=== PATIENT | female | born 1935 | race Caucasian/White ===

== ENCOUNTER 2016-08-31 19:33 | Inpatient (IN) | payer MEDICARE ==
--- NOTE | 2016-08-31 20:05 | ER Document Report ---
ED Medical Screen (RME) - General Stated Complaint: BLOOD PRESSURE/DIZZY Mode of Arrival: Wheelchair Information source: Patient Notes: Patient complains of elevated blood pressure at home 199/100. Patient additionally complains of sore throat for the past several weeks. Patient does complain of headache pain that started today. Patient states that she started to develop left-sided chest pain today. Patient states she is unable to take aspirin. hx: Hypertension I have greeted and performed a rapid initial assessment of this patient. A comprehensive ED assessment and evaluation of the patient, analysis of test results and completion of the medical decision making process will be conducted by additional ED providers. TRAVEL OUTSIDE OF THE [place] IN LAST 30 DAYS: No - Related Data Allergies/Adverse Reactions: Penicillins Allergy (Verified 08/31/16 20:00) Sulfa (Sulfonamide Antibiotics) Allergy (Verified 08/31/16 20:00) Past Medical History - Past Medical History Cardiac Medical History: Reports: Hx Hypercholesterolemia, Hx Hypertension Neurological Medical History: Reports: Hx Cerebrovascular Accident - 2 Musculoskeltal Medical History: Reports Hx Arthritis Psychiatric Medical History: Denies: Hx Depression Infectious Medical History: Denies: Hx C-Diff Past Surgical History: Reports: Hx Cholecystectomy, Hx Orthopedic Surgery Physical Exam - Respiratory Chest status: Nontender - Cardiovascular Rhythm: Regular Heart sounds: S1 appreciated, S2 appreciated
[2016-08-31 21:07] LABS: ABSOLUTE BASOPHILS # (AUTO) 0.1 10^3/uL (0.0-0.2); ABSOLUTE EOSINOPHILS # (AUTO) 0.2 10^3/uL (0.0-0.6); ABSOLUTE LYMPHOCYTES (AUTO) 2.7 10^3/uL (0.5-4.7); ABSOLUTE MONOCYTES (AUTO) 0.5 10^3/uL (0.1-1.4); ABSOLUTE NEUT (AUTO) 3.8 10^3/uL (1.7-8.2); EOSINOPHILS % (AUTO) 3.3 % (0-6); HEMATOCRIT 41.7 % (36.0-47.0); HEMOGLOBIN 13.8 g/dL (12.0-15.5); HGB HCT DIFFERENCE -0.3; LYMPHOCYTES % (AUTO) 36.8 % (13-45); MEAN CORPUSCULAR HEMOGLOBIN 28.3 pg (27.0-33.4); MEAN CORPUSCULAR VOLUME 86 fl (80-97); MONOCYTES % (AUTO) 7.4 % (3-13); RED BLOOD COUNT 4.86 10^6/uL (3.72-5.28); RED CELL DISTRIBUTION WIDTH 13.1 % (11.5-14.0); SEGMENTED NEUTROPHILS % (AUTO) 51.5 % (42-78); WHITE BLOOD COUNT 7.4 10^3/uL (4.0-10.5)
[2016-08-31 21:22] LABS: ALANINE AMINOTRANSFERASE 39 U/L (9-52); ALBUMIN 4.1 g/dL (3.5-5.0); ALKALINE PHOSPHATASE 80 U/L (38-126); ANION GAP 9 (5-19); ASPARTATE AMINO TRANSFERASE 34 U/L (14-36); BILIRUBIN,TOTAL 0.5 mg/dL (0.2-1.3); BLOOD UREA NITROGEN 17 mg/dL (7-20); CALCIUM 10.2 mg/dL (8.4-10.2); CARBON DIOXIDE 23 mmol/L (22-30); CHLORIDE 104 mmol/L (98-107); CREATINE KINASE 123 U/L (30-135); CREATININE RESULT 0.71 mg/dL (0.52-1.25); GLUCOSE 99 mg/dL (75-110); MAGNESIUM 1.7 mg/dL (1.6-2.3); SODIUM 136.1 mmol/L (137-145); TOTAL PROTEIN 7.2 g/dL (6.3-8.2)
[2016-08-31 21:33] LABS: CREATINE KINASE MB 1.62 ng/mL (<4.55); TROPONIN I 0.012 ng/mL
[2016-08-31] MEDS ORDERED: NITROGLYCERIN 2% OINTMENT 1 GM PACKET TP ONE (22:46)
[2016-08-31 22:56] LABS: APPEARANCE,URINE CLEAR; BILIRUBIN,URINE NEGATIVE (NEGATIVE); GLUCOSE, URINE NEGATIVE (NEGATIVE); KETONES,URINE NEGATIVE (NEGATIVE); LEUKOCYTE ESTERASE,URINE SMALL (NEGATIVE); NITRITE,URINE NEGATIVE (NEGATIVE); PROTEIN,URINE NEGATIVE (NEGATIVE); URINE SPECIFIC GRAVITY 1.006; UROBILINOGEN,URINE NEGATIVE mg/dL (<2.0)
--- NOTE | 2016-08-31 23:03 | ER Document Report ---
ED General - General Chief Complaint: Blood Pressure Problem Stated Complaint: BLOOD PRESSURE/DIZZY Mode of Arrival: Wheelchair Notes: Patient is a 1-year-old female presents for complaint of high blood pressure, dizziness, and headaches. Patient says she's had dizziness and headaches since her stroke urinate half ago. She says this isn't headaches occur every day however today showed a headache that was different. She said she felt like pain and swelling going into her neck and her head. She said one time she had this before sweats she had a stroke urine half ago. No focal weakness or numbness. She does mention that her left leg at times feels like it's about to go out. That is needed today and she had that once in the past when she had a previous stroke. No slurred speech. No fevers. No infections. She is on lisinopril 10 mg a day which she says usually controls her blood pressure well. She now follows with Dr. Chatterjee as her primary care physician. She does admit to some mild chest pain which she started having earlier today. She says she does get this pain frequently and is familiar to her. She currently does not have any chest pain. TRAVEL OUTSIDE OF THE [place] IN LAST 30 DAYS: No - Related Data Allergies/Adverse Reactions: Penicillins Allergy (Verified 08/31/16 20:00) Sulfa (Sulfonamide Antibiotics) Allergy (Verified 08/31/16 20:00) Past Medical History - General Information source: Patient - Social History Smoking Status: Never Smoker Frequency of alcohol use: None Drug Abuse: None Family History: Reviewed & Not Pertinent Patient has suicidal ideation: No Patient has homicidal ideation: No - Past Medical History Cardiac Medical History: Reports: Hx Hypercholesterolemia, Hx Hypertension Neurological Medical History: Reports: Hx Cerebrovascular Accident - 2 Renal/ Medical History: Denies: Hx Peritoneal Dialysis Musculoskeltal Medical History: Reports Hx Arthritis Psychiatric Medical History: Denies: Hx Depression Infectious Medical History: Denies: Hx C-Diff Past Surgical History: Reports: Hx Cholecystectomy, Hx Orthopedic Surgery - Immunizations Hx Diphtheria, Pertussis, Tetanus Vaccination: Yes Hx Pneumococcal Vaccination: 04/13/11 Review of Systems - Review of Systems Notes: My Normal Review Basic REVIEW OF SYSTEMS: CONSTITUTIONAL : Denies fever, chills, or sweats. Denies recent illness. EENT: Denies eye, ear, throat, or mouth pain or symptoms. Denies nasal or sinus congestion. CARDIOVASCULAR: Had chest pain RESPIRATORY: Denies cough, cold, or chest congestion. Denies shortness of breath, difficulty breathing, or wheezing. GASTROINTESTINAL: Denies abdominal pain. Denies nausea, vomiting, or diarrhea. Denies constipation. Last BM: MUSCULOSKELETAL: Denies neck or back pain or joint pain or swelling. SKIN: Denies rash or skin lesions. NEUROLOGICAL: Denies altered mental status or loss of consciousness. Had a headache. Denies weakness or paralysis or loss of use of either side. Denies problems with gait or speech. Denies sensory or motor loss. PSYCHIATRIC: Denies anxiety or stress or depression. ALL OTHER SYSTEMS REVIEWED AND NEGATIVE. Physical Exam - Vital signs Vitals: Temp Pulse Resp BP Pulse Ox 97.5 F 88 17 180/85 H 97 08/31/16 20:01 08/31/16 20:01 08/31/16 20:01 08/31/16 20:01 08/31/16 20:01 - Notes Notes: General Appearance: Well nourished, alert, cooperative, no acute distress, no obvious discomfort. Vitals: reviewed, See vital signs table. Head: no swelling or tenderness to the head Eyes: PERRL, EOMI, Conjuctiva clear Mouth: No decreasd moisture Neck: Supple, no neck tenderness, No thyromegaly Lungs: No wheezing, No rales, No rhonci, No accessory muscle use, good air exchange bilaterally. Heart: Normal rate, Regular rythm, No murmur, no rub Abdomen: Normal BS, soft, No rigidity, No abdominal tenderness, No guarding, no rebound, no abdominal masses, no organomegaly Extremities: strength 5/5 in all extremities, good pulses in all extremities, no swelling or tenderness in the extremities, no edema. Skin: warm, dry, appropriate color, no rash Neuro: speech clear, oriented x 3, normal affect, responds appropriately to questions. Cranial nerves II through XII are intact. Distal sensation intact. Patient moves all extremities without difficulty. Course - Vital Signs Vital signs: Temp Pulse Resp BP Pulse Ox 97.5 F 88 13 148/64 H 97 08/31/16 20:01 08/31/16 20:01 09/01/16 00:01 09/01/16 00:01 09/01/16 00:01 - Laboratory Result Diagrams: 08/31/16 21:00 08/31/16 21:00 Laboratory results interpreted by me: 08/31/16 08/31/16 21:00 22:35 Sodium 136.1 L Urine Blood SMALL H Ur Leukocyte Esterase SMALL H - Transfer of Care Notes: 09/01/16 00:19 Patient's blood pressure is improving without any intervention. The exact cause of her headache is not completely clear; however, I cannot or the fact that the 2 previous times that she had the exact same type of headache and the weird sensation in her legs she had acute stroke on her MRIs when she was admitted. She has no other neurologic deficits on exam. She looks well otherwise. We will admit her for further workup of her symptoms being that they 've represented strokes in the past. Dictation of this chart was performed using voice recognition software; therefore, there may be some unintended grammatical errors. Discharge - Discharge Clinical Impression: History of stroke Hypertension Qualifiers: Hypertension type: essential hypertension Qualified Code(s): I10 - Essential ( primary) hypertension Headache Qualifiers: Headache type: unspecified Headache chronicity pattern: episodic headache Intractability: not intractable Qualified Code(s): R51 - Headache Condition: Stable Disposition: ADMITTED OBSERVATION Admitting Provider: Hospitalist Unit Admitted: Telemetry
[2016-09-01] MEDS ORDERED: MAGNESIUM HYDROXIDE SUSP 30 ML UDCUP PO PRN (00:19)
[2016-09-01] MEDS ORDERED: ONDANSETRON 4 MG TAB.RAPDIS PO PRN (00:19)
[2016-09-01] MEDS ORDERED: ACETAMINOPHEN 325 MG TABLET PO PRN (00:19)
[2016-09-01] MEDS ORDERED: NORMAL SALINE 1000 ML 1,000 ML IV PRN (05:33)
[2016-09-01] MEDS: HEPARIN SOD (PORCINE) 5,000 UNIT/ML 1 ML SYRINGE SUBCUT SCH ×3 (06:07→22:50)
--- NOTE | 2016-09-01 06:28 | PDOC H&P ---
History of Present Illness Admission Date/PCP: 09/01/16 00:19 PENNY TREJO MD Patient complains of: Headache History of Present Illness: DAILY DE SANTIAGO is a 81 year old female with a past medical history of CVA, hypertension who is in her usual state of health until approximately 3 days ago noting to have an exceptional headache which was diffuse and dull associated with blurred vision and facial flushing without palpitations or frequent stools or diaphoresis prompting her to check her blood pressure finding it to be in the 190 systolic and came to the emergency room for evaluation. She had some vague short-lived leg weakness without fall no confusion or difficulty with speech. She denies change in her medications or diet though admits her mood is somewhat depressed with early awakening and loneliness. Past Medical History Cardiac Medical History: Reports: Hyperlipidema, Hypertension Neurological Medical History: Reports: Ischemic CVA Musculoskeltal Medical History: Reports: Arthritis Psychiatric Medical History: Denies: Depression Infectious Medical History: Denies: Clostridium Difficile Past Surgical History Past Surgical History: Reports: Cholecystectomy, Orthopedic Surgery Social History Information Source: Patient Lives with: Alone Smoking Status: Never Smoker Frequency of Alcohol Use: None Hx Recreational Drug Use: No Drugs: None Hx Prescription Drug Abuse: No - Advance Directive Resuscitation Status: Full Code Family History Family History: Hypertension, Malignancy Parental Family History Reviewed: Yes Children Family History Reviewed: Yes Sibling(s) Family History Reviewed.: Yes Medication/Allergy Home Medications: Atorvastatin Calcium [Lipitor 20 mg Tablet] 20 mg PO QHS #30 tablet 05/23/15 Lisinopril [Lisinopril] 10 mg PO DAILY 09/01/16 Allergies/Adverse Reactions: Penicillins Allergy (Verified 08/31/16 20:00) Sulfa (Sulfonamide Antibiotics) Allergy (Verified 08/31/16 20:00) Review of Systems Constitutional: PRESENT: fatigue, weakness. ABSENT: chills, fever(s), headache( s), night sweats, weight gain, weight loss Eyes: PRESENT: visual disturbances Ears: ABSENT: hearing changes Cardiovascular: ABSENT: chest pain, dyspnea on exertion, edema, orthropnea, palpitations Respiratory: ABSENT: cough, hemoptysis Gastrointestinal: ABSENT: abdominal pain, constipation, diarrhea, hematemesis, hematochezia, nausea, vomiting Genitourinary: ABSENT: dysuria, hematuria Musculoskeletal: PRESENT: muscle weakness - Intermittent lower extremity muscle weakness. ABSENT: joint swelling Integumentary: ABSENT: rash, wounds Neurological: PRESENT: paresthesias, restless legs. ABSENT: abnormal gait, abnormal speech, confusion, dizziness, focal weakness, frequent falls, lack of coordination, memory loss, numbness, syncope, tingling, tremor(s), vertigo Psychiatric: PRESENT: anxiety, depression Endocrine: PRESENT: flushing. ABSENT: cold intolerance, heat intolerance, menstrual abnormalities, polydipsia, polyphagia, polyuria Physical Exam Vital Signs: Temp Pulse Resp BP Pulse Ox 97.5 F 88 18 139/72 H 96 08/31/16 20:01 08/31/16 20:01 09/01/16 05:26 09/01/16 05:26 09/01/16 05:26 General appearance: PRESENT: no acute distress, cooperative, well-developed, well-nourished. ABSENT: disheveled Head exam: PRESENT: atraumatic, normocephalic Eye exam: PRESENT: conjunctival injection, conjunctiva pink, EOMI, PERRLA. ABSENT: scleral icterus Ear exam: PRESENT: normal external ear exam Mouth exam: PRESENT: moist, tongue midline Neck exam: ABSENT: carotid bruit, JVD, lymphadenopathy, thyromegaly Respiratory exam: PRESENT: clear to auscultation lanny. ABSENT: rales, rhonchi, wheezes Cardiovascular exam: PRESENT: RRR. ABSENT: diastolic murmur, rubs, systolic murmur Pulses: PRESENT: normal dorsalis pedis pul Vascular exam: PRESENT: normal capillary refill GI/Abdominal exam: PRESENT: normal bowel sounds, soft. ABSENT: distended, guarding, mass, organolmegaly, rebound, tenderness Rectal exam: PRESENT: deferred Extremities exam: PRESENT: full ROM. ABSENT: calf tenderness, clubbing, pedal edema Neurological exam: PRESENT: alert, awake, oriented to person, oriented to place , oriented to time, oriented to situation, reflexes normal, CN II-XII grossly intact. ABSENT: ataxia, motor sensory deficit, aphasic Psychiatric exam: PRESENT: anxious, appropriate affect, normal mood. ABSENT: homicidal ideation, suicidal ideation Skin exam: PRESENT: dry, intact, warm. ABSENT: cyanosis, rash Results Impressions: Chest X-Ray 08/31/16 20:04 IMPRESSION: No acute cardiopulmonary disease. Head CT 08/31/16 22:44 IMPRESSION: Chronic changes. Old right cerebral infarct. No acute intracranial abnormality. Assessment & Plan - Diagnosis (1) Hypertensive emergency Is this a current diagnosis for this admission?: YesPlan: Patient's blood pressure in the emergency room is 212/126 though drops to 140/ 90 without intervention and is asymptomatic, I suspect she is compliant with her medication regiment but has untreated anxiety. I'll continue to monitor on a monitored bed evaluate for CVA given her history she is reluctant to take aspirin resulting in nausea but not allergic response. I'll initiate a proton pump inhibitor with aspirin and full dose Lipitor (2) TIA (transient ischemic attack) Is this a current diagnosis for this admission?: YesPlan: Secondary to hypertensive emergency the patient has multiple previous CVAs, aspirin with proton pump inhibitor and Lipitor ordered (3) Headache Qualifiers: Headache type: unspecified Headache chronicity pattern: episodic headache Intractability: not intractable Qualified Code(s): R51 - Headache Is this a current diagnosis for this admission?: YesPlan: Secondary to uncontrolled blood pressure will initiate low-dose beta misha (4) Depression with anxiety Is this a current diagnosis for this admission?: YesPlan: Trial SSRI - Time Time Spent: 30 to 50 Minutes
[2016-09-01 07:26] LABS: ABSOLUTE EOSINOPHILS # (AUTO) 0.3 10^3/uL (0.0-0.6); ABSOLUTE LYMPHOCYTES (AUTO) 1.9 10^3/uL (0.5-4.7); ABSOLUTE MONOCYTES (AUTO) 0.7 10^3/uL (0.1-1.4); ABSOLUTE NEUT (AUTO) 3.2 10^3/uL (1.7-8.2); BASOPHILS % (AUTO) 0.7 % (0-2); EOSINOPHILS % (AUTO) 4.8 % (0-6); HEMATOCRIT 36.6 % (36.0-47.0); HEMOGLOBIN 12.1 g/dL (12.0-15.5); HGB HCT DIFFERENCE -0.3; LYMPHOCYTES % (AUTO) 30.7 % (13-45); MEAN CORPUSCULAR HEMOGLOBIN 28.7 pg (27.0-33.4); MEAN CORPUSCULAR VOLUME 87 fl (80-97); MONOCYTES % (AUTO) 11.2 % (3-13); RED BLOOD COUNT 4.21 10^6/uL (3.72-5.28); SEGMENTED NEUTROPHILS % (AUTO) 52.6 % (42-78); WHITE BLOOD COUNT 6.1 10^3/uL (4.0-10.5)
[2016-09-01 07:42] LABS: ANION GAP 8 (5-19); BLOOD UREA NITROGEN 13 mg/dL (7-20); CALCIUM 9.1 mg/dL (8.4-10.2); CARBON DIOXIDE 24 mmol/L (22-30); CHLORIDE 109 mmol/L (98-107); CHOLESTEROL 155.09 mg/dL (0-200); CREATININE RESULT 0.67 mg/dL (0.52-1.25); Direct HDL 94 mg/dL (>40); GLUCOSE 83 mg/dL (75-110); POTASSIUM 4.1 mmol/L (3.6-5.0); TRIGLYCERIDES 55 mg/dL (<150)
[2016-09-01 07:54] LABS: DIRECT LDL 46 mg/dL (<100)
[2016-09-01] MEDS ORDERED: ATENOLOL 50 MG TABLET PO SCH (10:00)
[2016-09-01] MEDS: LISINOPRIL 10 MG TABLET PO SCH (10:15)
[2016-09-01] MEDS: PAROXETINE HCL 20 MG TABLET PO SCH (10:15)
[2016-09-01] MEDS: ASPIRIN 325 MG TABLET PO SCH (10:15)
[2016-09-01] MEDS: ATENOLOL 50 MG TABLET PO SCH (10:15)
--- NOTE | 2016-09-01 10:38 | EKG REPORT ---
SEVERITY:- ABNORMAL ECG - SINUS RHYTHM BORDERLINE LEFT AXIS DEVIATION ABNRM R PROG, CONSIDER ASMI OR LEAD PLACEMENT : Confirmed by: Alicia Jones 01-Sep-2016 10:37:30
[2016-09-01] MEDS: LANSOPRAZOLE 30 MG TAB.RAP.DR PO SCH (17:33)
[2016-09-01] MEDS ORDERED: ATORVASTATIN CALCIUM 20 MG TABLET PO SCH (22:00)
[2016-09-01] MEDS ORDERED: INFLUENZA ADLT QUAD (36MOS+) 2016-17 VAC 0.5 ML SYR IM PRN (23:33)
[2016-09-02 05:02] LABS: ABSOLUTE EOSINOPHILS # (AUTO) 0.2 10^3/uL (0.0-0.6); ABSOLUTE LYMPHOCYTES (AUTO) 1.9 10^3/uL (0.5-4.7); ABSOLUTE MONOCYTES (AUTO) 0.4 10^3/uL (0.1-1.4); ABSOLUTE NEUT (AUTO) 4.4 10^3/uL (1.7-8.2); BASOPHILS % (AUTO) 0.4 % (0-2); EOSINOPHILS % (AUTO) 3.1 % (0-6); HEMATOCRIT 36.9 % (36.0-47.0); HEMOGLOBIN 12.3 g/dL (12.0-15.5); LYMPHOCYTES % (AUTO) 27.1 % (13-45); MEAN CORPUSCULAR HEMOGLOBIN 28.8 pg (27.0-33.4); MEAN CORPUSCULAR HGB CONC 33.2 g/dL (32.0-36.0); MEAN CORPUSCULAR VOLUME 87 fl (80-97); MONOCYTES % (AUTO) 6.2 % (3-13); RED BLOOD COUNT 4.26 10^6/uL (3.72-5.28); RED CELL DISTRIBUTION WIDTH 13.1 % (11.5-14.0); SEGMENTED NEUTROPHILS % (AUTO) 63.2 % (42-78)
[2016-09-02 05:20] LABS: ANION GAP 7 (5-19); BLOOD UREA NITROGEN 15 mg/dL (7-20); CALCIUM 9.5 mg/dL (8.4-10.2); CARBON DIOXIDE 25 mmol/L (22-30); CHLORIDE 105 mmol/L (98-107); CREATININE RESULT 0.64 mg/dL (0.52-1.25); GLUCOSE 81 mg/dL (75-110); POTASSIUM 4.4 mmol/L (3.6-5.0); SODIUM 136.9 mmol/L (137-145)
[2016-09-02] MEDS: LANSOPRAZOLE 30 MG TAB.RAP.DR PO SCH (06:23)
[2016-09-02] MEDS: HEPARIN SOD (PORCINE) 5,000 UNIT/ML 1 ML SYRINGE SUBCUT SCH (06:25)
[2016-09-02 08:05] VITALS: BP 129/45
[2016-09-02] MEDS: LISINOPRIL 10 MG TABLET PO SCH (10:24)
[2016-09-02] MEDS: ATENOLOL 50 MG TABLET PO SCH (10:24)
[2016-09-02] MEDS: PAROXETINE HCL 20 MG TABLET PO SCH (10:25)
[2016-09-02] MEDS: ASPIRIN 325 MG TABLET PO SCH (10:25)
--- NOTE | 2016-09-02 20:43 | PDOC DISCHARGE SUMMARY ---
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 Is this a current diagnosis for this admission?: No (6) History of stroke Is this a current diagnosis for this admission?: Yes - Additional Information Resuscitation Status: Full Code Discharge Diet: Cardiac Discharge Activity: Activity As Tolerated, Balance Activity w/Rest Home Medications: Divalproex Sodium [Depakote ER 250 mg Tablet] 2 tab PO QHS 09/02/16 Lisinopril [Prinivil 10 mg Tablet] 10 mg PO DAILY 09/02/16 Meloxicam [Mobic 7.5 mg Tablet] 7.5 mg PO BIDP PRN 09/02/16 History of Present Illness History of Present Illness: DAILY DE SANTIAGO is a 81 year old female with a past medical history of CVA, hypertension who is in her usual state of health until approximately 3 days ago noting to have an exceptional headache which was diffuse and dull associated with blurred vision and facial flushing without palpitations or frequent stools or diaphoresis prompting her to check her blood pressure finding it to be in the 190 systolic and came to the emergency room for evaluation. She had some vague short-lived leg weakness without fall no confusion or difficulty with speech. She denies change in her medications or diet though admits her mood is somewhat depressed with early awakening and loneliness. Hospital Course Hospital Course: Upon presentation to the emergency department patient was found to be profoundly hypertensive. She received no medication in the emergency department for her blood pressure but did subsequently have a decline in her blood pressure on its own. Her medications were restarted and patient had good control of her blood pressure. Patient underwent carotid Doppler which revealed no hemodynamically significant stenosis. Patient's headache spontaneously resolved. Patient was evaluated by PT. Patient was stable for discharge today with no new complaints. Physical Exam Vital Signs: Temp Pulse Resp BP Pulse Ox 98.1 F 66 18 129/45 H 94 02/20/17 11:04 09/02/16 11:04 09/02/16 11:04 09/02/16 11:04 09/02/16 11:04 Intake & Output 09/01/16 09/02/16 09/03/16 06:59 06:59 06:59 Intake Total 10 Balance 10 Weight 76.5 kg 76 kg Exam: General: Awake alert and oriented x3, no acute respiratory distress HEENT: AT/NC, PERRL, EOMI, oropharynx is moist, pink, no scleral icterus, no conjunctival injection Neck: No JVD, trachea midline Chest: Clear to auscultation bilaterally, no wheezes rhonchi or rales CV: Regular rate and rhythm, normal S1 and S2, no murmur, rub, or gallop Abdomen: Soft, nontender to palpation, nondistended, active bowel sounds; no rebound, rigidity, or guarding Extremities: No cyanosis, clubbing or edema Neuro: Cranial nerves II through XII are grossly intact without focal deficits; awake alert and oriented x3 Psych: Normal mood and affect Results Laboratory Results: 09/02/16 03:56 09/02/16 03:56 09/02/16 09/02/16 03:56 03:56 WBC 7.0 RBC 4.26 Hgb 12.3 Hct 36.9 MCV 87 MCH 28.8 MCHC 33.2 RDW 13.1 Plt Count 190 Seg Neutrophils % 63.2 Lymphocytes % 27.1 Monocytes % 6.2 Eosinophils % 3.1 Basophils % 0.4 Absolute Neutrophils 4.4 Absolute Lymphocytes 1.9 Absolute Monocytes 0.4 Absolute Eosinophils 0.2 Absolute Basophils 0.0 Sodium 136.9 L Potassium 4.4 Chloride 105 Carbon Dioxide 25 Anion Gap 7 BUN 15 Creatinine 0.64 Est GFR ( Amer) > 60 Est GFR (Non-Af Amer) > 60 Glucose 81 Calcium 9.5 Impressions: Chest X-Ray 08/31/16 20:04 IMPRESSION: No acute cardiopulmonary disease. Carotid Doppler Study 09/01/16 00:00 IMPRESSION: NO HEMODYNAMICALLY SIGNIFICANT STENOSIS. Head CT 09/01/16 00:00 IMPRESSION: Old right middle cerebral artery distribution infarct No acute findings Qualifiers PATEINT BEING DISCHARGED WITH ANY OF THE FOLLOWING DIAGNOSIS?: No Plan Time Spent: Less than 30 Minutes
== END 2016-09-02 12:03 | disposition home or self-care (01) | DRG 69 ==
LOC: ER 19:33 → EH 09-01 00:19 → 3N 09-01 23:09
PROVIDERS: ADMIT Internal Medicine; ATTEND Internal Medicine
DX: G45.9 Transient cerebral ischemic attack, unspecified (principal); I16.1 Hypertensive emergency; I10 Essential (primary) hypertension; E78.5 Hyperlipidemia, unspecified; R42 Dizziness and giddiness; H53.8 Other visual disturbances; R51 Headache; F41.8 Other specified anxiety disorders; M19.90 Unspecified osteoarthritis, unspecified site; Z60.2 Problems related to living alone; Z86.73 Personal history of transient ischemic attack (TIA), and cerebral infarction without residual deficits; Z88.2 Allergy status to sulfonamides; Z88.0 Allergy status to penicillin
CPT/HCPCS: 36415; 70450; 71020; 80048; 80053; 80061; 81001; 82550; 82553; 83735; 84484; 85025; 87086; 93005; 93010; 93880; 99285; G8978-GP; G8979-GP; G8980-GP; G8987-GO; G8988-GO; G8989-GO; G8996-GN; G8997-GN; G8998-GN; J1644; J3490; J7030

== ENCOUNTER 2016-09-14 11:39 | Emergency (ER) | payer MEDICARE ==
[2016-09-14 11:45] VITALS: BP 179/85
--- NOTE | 2016-09-14 11:47 | ER Document Report ---
ED Medical Screen (RME) - General Stated Complaint: HEADACHE,DIZZY Time seen by provider: 11:43 Mode of Arrival: Ambulatory Information source: Patient Notes: 81-year-old complaining of a severe explosive type headache (worse than usual) that started last night and persists today. Her blood pressure shot up high last night. sHe also has chronic dizziness,/staggering when sje walks (not new) . She's had CAT scans in the past and cannot figure out what causes her headaches. TRAVEL OUTSIDE OF THE [place] IN LAST 30 DAYS: No - Related Data Allergies/Adverse Reactions: Penicillins Allergy (Verified 09/14/16 11:42) Sulfa (Sulfonamide Antibiotics) Allergy (Verified 09/14/16 11:42) Past Medical History - Past Medical History Cardiac Medical History: Reports: Hx Hypercholesterolemia, Hx Hypertension Neurological Medical History: Reports: Hx Cerebrovascular Accident - 2 Renal/ Medical History: Denies: Hx Peritoneal Dialysis Musculoskeltal Medical History: Reports Hx Arthritis Psychiatric Medical History: Denies: Hx Depression Infectious Medical History: Denies: Hx C-Diff Past Surgical History: Reports: Hx Cholecystectomy, Hx Orthopedic Surgery - Immunizations Hx Diphtheria, Pertussis, Tetanus Vaccination: Yes
[2016-09-14 12:06] LABS: ABSOLUTE BASOPHILS # (AUTO) 0.1 10^3/uL (0.0-0.2); ABSOLUTE EOSINOPHILS # (AUTO) 0.3 10^3/uL (0.0-0.6); ABSOLUTE LYMPHOCYTES (AUTO) 1.8 10^3/uL (0.5-4.7); ABSOLUTE MONOCYTES (AUTO) 0.6 10^3/uL (0.1-1.4); ABSOLUTE NEUT (AUTO) 4.8 10^3/uL (1.7-8.2); EOSINOPHILS % (AUTO) 4.3 % (0-6); HEMATOCRIT 42.6 % (36.0-47.0); HEMOGLOBIN 14.1 g/dL (12.0-15.5); HGB HCT DIFFERENCE -0.3; LYMPHOCYTES % (AUTO) 23.4 % (13-45); MEAN CORPUSCULAR HEMOGLOBIN 28.7 pg (27.0-33.4); MEAN CORPUSCULAR HGB CONC 33.2 g/dL (32.0-36.0); MEAN CORPUSCULAR VOLUME 87 fl (80-97); MONOCYTES % (AUTO) 7.9 % (3-13); RED BLOOD COUNT 4.91 10^6/uL (3.72-5.28); RED CELL DISTRIBUTION WIDTH 13.3 % (11.5-14.0); SEGMENTED NEUTROPHILS % (AUTO) 63.4 % (42-78); WHITE BLOOD COUNT 7.6 10^3/uL (4.0-10.5)
[2016-09-14 12:24] LABS: ALANINE AMINOTRANSFERASE 41 U/L (9-52); ALBUMIN 4.8 g/dL (3.5-5.0); ALKALINE PHOSPHATASE 71 U/L (38-126); ANION GAP 11 (5-19); ASPARTATE AMINO TRANSFERASE 41 U/L (14-36); BILIRUBIN,TOTAL 0.5 mg/dL (0.2-1.3); BLOOD UREA NITROGEN 18 mg/dL (7-20); CALCIUM 10.5 mg/dL (8.4-10.2); CARBON DIOXIDE 28 mmol/L (22-30); CHLORIDE 99 mmol/L (98-107); CREATINE KINASE 218 U/L (30-135); CREATININE RESULT 0.76 mg/dL (0.52-1.25); GLUCOSE 98 mg/dL (75-110); POTASSIUM 5.4 mmol/L (3.6-5.0); SODIUM 137.8 mmol/L (137-145); TOTAL PROTEIN 7.9 g/dL (6.3-8.2)
[2016-09-14] MEDS ORDERED: IBUPROFEN 800 MG TABLET PO ONE (12:53)
--- NOTE | 2016-09-14 12:54 | ER Document Report ---
ED General - General Chief Complaint: Headache Stated Complaint: HEADACHE,DIZZY Mode of Arrival: Ambulatory Information source: Patient Notes: 81-year-old female history of hypertension anxiety depression presents with complaints of headache. Patient notes she had a mild headache last night, blood pressure was elevated, she is on lisinopril which she states makes her dizzy old time she takes it. Patient denies any neurological deficits otherwise TRAVEL OUTSIDE OF THE [place] IN LAST 30 DAYS: No - HPI Onset: Yesterday Onset/Duration: Persistent Quality of pain: Achy Severity: Mild Pain Level: 1 Associated symptoms: Headache, Other Exacerbated by: Denies Relieved by: Denies Similar symptoms previously: Yes Recently seen / treated by doctor: Yes - Related Data Allergies/Adverse Reactions: Penicillins Allergy (Verified 09/14/16 11:42) Sulfa (Sulfonamide Antibiotics) Allergy (Verified 09/14/16 11:42) Past Medical History - General Information source: Patient - Social History Smoking Status: Never Smoker Cigarette use (# per day): No Chew tobacco use (# tins/day): No Smoking Education Provided: No Frequency of alcohol use: None Drug Abuse: None Family History: Hypertension, Malignancy Patient has suicidal ideation: No Patient has homicidal ideation: No - Past Medical History Cardiac Medical History: Reports: Hx Hypercholesterolemia, Hx Hypertension Neurological Medical History: Reports: Hx Cerebrovascular Accident - 2 Renal/ Medical History: Denies: Hx Peritoneal Dialysis Musculoskeltal Medical History: Reports Hx Arthritis Psychiatric Medical History: Denies: Hx Depression Infectious Medical History: Denies: Hx C-Diff Past Surgical History: Reports: Hx Cholecystectomy, Hx Orthopedic Surgery - Immunizations Hx Diphtheria, Pertussis, Tetanus Vaccination: Yes Hx Pneumococcal Vaccination: 04/13/11 Review of Systems - Review of Systems Notes: REVIEW OF SYSTEMS: CONSTITUTIONAL : Denies fever, chills, or sweats. Denies recent illness. EENT: Denies eye, ear, throat, or mouth pain or symptoms. Denies nasal or sinus congestion or discharge. Denies throat, tongue, or mouth swelling or difficulty swallowing. CARDIOVASCULAR: Denies chest pain. Denies palpitations or racing or irregular heart beat. Denies ankle edema. RESPIRATORY: Denies cough, cold, or chest congestion. Denies shortness of breath, difficulty breathing, or wheezing. GASTROINTESTINAL: Denies abdominal pain or distention. Denies nausea, vomiting , or diarrhea. Denies blood in vomitus, stools, or per rectum. Denies black, tarry stools. Denies constipation. GENITOURINARY: Denies difficulty urinating, painful urination, burning, frequency, blood in urine, or discharge. FEMALE GENITOURINARY: Denies vaginal bleeding, heavy or abnormal periods, irregular periods. Denies vaginal discharge or odor. MUSCULOSKELETAL: Denies back or neck pain or stiffness. Denies joint pain or swelling. SKIN: Denies rash, lesions or sores. HEMATOLOGIC : Denies easy bruising or bleeding. LYMPHATIC: Denies swollen, enlarged glands. NEUROLOGICAL: Admits to headache dizziness PSYCHIATRIC: Denies anxiety or stress. Denies depression, suicidal ideation, or homicidal ideation. ALL OTHER SYSTEMS REVIEWED AND NEGATIVE. Dictation was performed using [facility] voice recognition software PHYSICAL EXAMINATION: GENERAL: Well-appearing, well-nourished and in no acute distress. Patient is smiling with no complaints HEAD: Atraumatic, normocephalic. EYES: Pupils equal round and reactive to light, extraocular movements intact, conjunctiva are normal. ENT: Nares patent, oropharynx clear without exudates. Moist mucous membranes. NECK: Normal range of motion, supple without lymphadenopathy LUNGS: Breath sounds clear to auscultation bilaterally and equal. No wheezes rales or rhonchi. HEART: Regular rate and rhythm without murmurs ABDOMEN: Soft, nontender, nondistended abdomen. No guarding, no rebound. No masses appreciated. Female : deferred Musculoskeletal: Normal range of motion, no pitting or edema. No cyanosis. NEUROLOGICAL: Cranial nerves grossly intact. Normal speech, normal gait. Normal sensory, motor exams PSYCH: Normal mood, normal affect. SKIN: Warm, Dry, normal turgor, no rashes or lesions noted. Physical Exam - Vital signs Vitals: Temp Pulse Resp BP Pulse Ox 98.0 F 99 16 179/85 H 97 09/14/16 11:44 09/14/16 11:44 09/14/16 11:44 09/14/16 11:44 09/14/16 11:44 Course - Re-evaluation Re-evalutation: 09/14/16 13:16 Patient at this time has no significant complaints, her CMP does note mild hyperkalemia, patient has been made aware of this and has been instructed to follow-up with primary care physician. She does note that she does not like her lisinopril and requests it be changed, I defer on changing since she can see her primary care physician who has refused to change at multiple times therefore I expect she has a valid medical reason for this and will not be interfering with his medical plan After performing a Medical Screening Examination, I estimate there is LOW risk for ACUTE GLAUCOMA, TEMPORAL ARTERITIS, MENINGITIS, INCRANIAL HEMORRHAGE, or ISCHEMIC STROKE thus I consider the discharge disposition reasonable. The patient and I have discussed the diagnosis and risks, and we agree with discharging home with close follow-up with the understanding that symptoms and presentations can change. We also discussed returning to the Emergency Department immediately if new or worsening symptoms occur. We have discussed the symptoms which are most concerning (e.g., changing or worsening symptoms, new numbness or weakness, vomiting, fever) that necessitate immediate return. - Vital Signs Vital signs: Temp Pulse Resp BP Pulse Ox 98.0 F 99 19 179/85 H 99 09/14/16 11:44 09/14/16 11:44 09/14/16 12:34 09/14/16 11:44 09/14/16 12:33 - Laboratory Result Diagrams: 09/14/16 11:40 09/14/16 11:40 Laboratory results interpreted by me: 09/14/16 11:40 Potassium 5.4 H Calcium 10.5 H AST 41 H Creatine Kinase 218 H - Diagnostic Test Radiology reviewed: Image reviewed, Reports reviewed Discharge - Discharge Clinical Impression: Headache Qualifiers: Headache type: unspecified Headache chronicity pattern: acute headache Intractability: not intractable Qualified Code(s): R51 - Headache Hypertension Qualifiers: Hypertension type: essential hypertension Qualified Code(s): I10 - Essential ( primary) hypertension Condition: Stable Disposition: HOME, SELF-CARE Instructions: Headache ([facility]) Additional Instructions: Follow up with your physician tomorrow for further care or return to the ED IMMEDIATELY if symptoms worsen or new concerns occur Forms: Elevated Blood Pressure
--- NOTE | 2016-09-14 19:48 | EKG REPORT ---
SEVERITY:- ABNORMAL ECG - SINUS RHYTHM VENTRICULAR PREMATURE COMPLEX BORDERLINE LEFT AXIS DEVIATION POOR R WAVE PROGRESSION ANTERIOR PRECORDIAL LEADS. : Confirmed by: Rod Lennon MD 14-Sep-2016 19:47:35
== END 2016-09-14 13:06 | disposition home or self-care (01) ==
LOC: ER 11:39
DX: R51 Headache (principal); R42 Dizziness and giddiness; I10 Essential (primary) hypertension; E78.00 Pure hypercholesterolemia, unspecified; Z88.0 Allergy status to penicillin; Z88.2 Allergy status to sulfonamides; Z86.73 Personal history of transient ischemic attack (TIA), and cerebral infarction without residual deficits; Z90.49 Acquired absence of other specified parts of digestive tract
CPT/HCPCS: 93005; 99284; 36415; 82550; 85025; 80053; 71010; 70450; 93010; A9270

== ENCOUNTER 2016-11-19 21:30 | Emergency (ER) | payer MEDICARE, OTHER ==
[2016-11-19] MEDS ORDERED: MECLIZINE HCL 12.5 MG TABLET PO ONE (23:09)
--- NOTE | 2016-11-19 23:15 | ER Document Report ---
ED General - General Chief Complaint: Dizziness and ROWELL Stated Complaint: DIZZINESS/HEADACHE Time Seen by Provider: 11/19/16 22:39 Notes: Patient is an 81-year-old female who presents with dizziness and headache. She spent here in the past for same symptoms. Patient says she's had recurrent headaches and dizziness for urinary half. She said this started after she had her stroke. Patient says she seen specialists for this including specialist at [facility]. She was told that she has vertigo and migraines. She comes today because she had a headache earlier today. She said the headache is gone. Headache was gradual in onset. She also had her dizziness. She said her blood pressure was high. Her doctor gave her labetalol to take at nighttime if her blood pressure is running high. She did take her labetalol now her blood pressures doing better. She says her dizziness currently is mild. She says it is a somewhat spinning type sensation. It is just like her previous dizziness that she's had in the past. Her headache is mostly in the right side of her head she says is just like her previous headaches. No recent trauma or injuries. No recent falls. She denies being on any blood thinning medications. TRAVEL OUTSIDE OF THE [place] IN LAST 30 DAYS: No - Related Data Allergies/Adverse Reactions: Penicillins Allergy (Verified 09/14/16 11:42) Sulfa (Sulfonamide Antibiotics) Allergy (Verified 09/14/16 11:42) Past Medical History - Social History Smoking Status: Never Smoker Frequency of alcohol use: None Drug Abuse: None Family History: Hypertension, Malignancy - Past Medical History Cardiac Medical History: Reports: Hx Hypercholesterolemia, Hx Hypertension Neurological Medical History: Reports: Hx Cerebrovascular Accident - 2 Renal/ Medical History: Denies: Hx Peritoneal Dialysis Musculoskeltal Medical History: Reports Hx Arthritis Psychiatric Medical History: Denies: Hx Depression Infectious Medical History: Denies: Hx C-Diff Past Surgical History: Reports: Hx Cholecystectomy, Hx Orthopedic Surgery - Immunizations Hx Diphtheria, Pertussis, Tetanus Vaccination: Yes Hx Pneumococcal Vaccination: 04/13/11 Review of Systems - Review of Systems Notes: My Normal Review Basic REVIEW OF SYSTEMS: CONSTITUTIONAL : Denies fever, chills, or sweats. Denies recent illness. EENT: Denies eye, ear, throat, or mouth pain or symptoms. Denies nasal or sinus congestion. CARDIOVASCULAR: Denies chest pain. RESPIRATORY: Denies cough, cold, or chest congestion. Denies shortness of breath, difficulty breathing, or wheezing. GASTROINTESTINAL: Denies abdominal pain. Denies nausea, vomiting, or diarrhea. Denies constipation. Last BM: MUSCULOSKELETAL: Denies neck or back pain or joint pain or swelling. SKIN: Denies rash or skin lesions. HEMATOLOGIC : Denies easy bruising or bleeding. NEUROLOGICAL: Denies altered mental status or loss of consciousness. Had a headache. Denies weakness or paralysis or loss of use of either side. Denies problems with gait or speech. Denies sensory or motor loss. ALL OTHER SYSTEMS REVIEWED AND NEGATIVE. Physical Exam - Vital signs Vitals: Temp Pulse Resp BP Pulse Ox 98.0 F 77 16 148/67 H 96 11/19/16 21:54 11/19/16 21:54 11/19/16 21:54 11/19/16 21:54 11/19/16 21:54 - Notes Notes: General Appearance: Well nourished, alert, cooperative, no acute distress, no obvious discomfort. Well-appearing. Vitals: reviewed, See vital signs table. Head: no swelling or tenderness to the head Eyes: PERRL, EOMI, Conjuctiva clear. Slight horizontal nystagmus with lateral gaze. Mouth: No decreasd moisture Throat: No tonsillar inflammation, No airway obstruction, No lymphadenopathy Neck: Supple, no neck tenderness, No thyromegaly Lungs: No wheezing, No rales, No rhonci, No accessory muscle use, good air exchange bilaterally. Heart: Normal rate, Regular rythm, No murmur, no rub Abdomen: Normal BS, soft, No rigidity, No abdominal tenderness, No guarding, no rebound, no abdominal masses, no organomegaly Extremities: strength 5/5 in all extremities, good pulses in all extremities, no swelling or tenderness in the extremities, no edema. Skin: warm, dry, appropriate color, no rash Neuro: speech clear, oriented x 3, normal affect, responds appropriately to questions. Cranial nerves II through XII are intact. Distal sensation intact. Normal gait. Normal Romberg. Course - Vital Signs Vital signs: Temp Pulse Resp BP Pulse Ox 98.0 F 77 16 130/76 H 96 11/19/16 21:54 11/19/16 21:54 11/19/16 21:54 11/20/16 00:10 11/19/16 21:54 - EKG Interpretation by Me Additional EKG results interpreted by me: 11/20/16 00:07 EKG is reviewed and interpreted by me. EKG shows sinus rhythm with rate of [address] segment elevation or depression. No ischemic T wave inversions. NJ interval, QRS duration, QTC intervals are within normal range. No old EKG available for comparison. - Transfer of Care Notes: 11/20/16 01:09 Patient's dizziness is resolved with the meclizine. She's says that her headache is coming ago. This same headache she's had since her stroke. She's been worked up by neurologist for this. I will give her a dose Tylenol for this. She looks well. She's: Neurologically intact. Her blood pressure is normalized. I feel she is safe to be discharged home. I do not think she is a CT scan. She's been here in the past for similar headaches and had CT scans which were negative. She's had no recent trauma or injuries. She has no focal neurologic deficits. No indication for scan at this time. Patient encouraged to follow closely with her primary care doctor. She's encouraged return to ER if she has recurrent worsening headaches, worsening dizziness, or she feels unwell. Patient agrees with plan and will be discharged home. Dictation of this chart was performed using voice recognition software; therefore, there may be some unintended grammatical errors. Discharge - Discharge Clinical Impression: Dizziness Headache Qualifiers: Headache type: unspecified Headache chronicity pattern: acute headache Intractability: not intractable Qualified Code(s): R51 - Headache Condition: Good Disposition: HOME, SELF-CARE Additional Instructions: Please take the medication as prescribed. You can take the pill for your dizziness up to 2 times a day. Please follow closely with your primary care doctor for reevaluation. Please return to the ER if you have worsening headaches, worsening dizziness, chest pain, difficulty breathing, or feel unwell. Please take your blood pressure medication as prescribed by your doctor. Prescriptions: Meclizine HCl 12.5 mg PO BID PRN #15 tablet PRN Reason: dizziness Referrals: PENNY TREJO MD [Primary Care Provider] - 11/21/16
[2016-11-20] MEDS ORDERED: ONDANSETRON 4 MG TAB.RAPDIS ONE (00:24)
[2016-11-20] MEDS ORDERED: MECLIZINE HCL 12.5 MG TABLET ONE (00:24)
[2016-11-20] MEDS ORDERED: ACETAMINOPHEN 325 MG TABLET PO ONE (01:06)
[2016-11-20 02:10] VITALS: BP 130/88
--- NOTE | 2016-11-20 13:41 | EKG REPORT ---
SEVERITY:- ABNORMAL ECG - SINUS RHYTHM BORDERLINE LEFT AXIS DEVIATION CONSIDER ANTEROSEPTAL INFARCT : Confirmed by: Alicia Jones 20-Nov-2016 13:40:39
== END 2016-11-20 02:08 | disposition home or self-care (01) ==
LOC: ER 21:30
DX: R42 Dizziness and giddiness (principal); R51 Headache; I10 Essential (primary) hypertension; E78.00 Pure hypercholesterolemia, unspecified; Z88.0 Allergy status to penicillin; Z88.2 Allergy status to sulfonamides; Z86.73 Personal history of transient ischemic attack (TIA), and cerebral infarction without residual deficits; Z90.49 Acquired absence of other specified parts of digestive tract
CPT/HCPCS: 93005; 99284; 93010; A9270 ×2; J3490

== ENCOUNTER 2017-01-25 10:44 | Emergency (ER) | payer MEDICARE, OTHER ==
[2017-01-25] MEDS ORDERED: MAG HYDROX/AL HYDROX/SIMETH SUSP 30 ML UDCUP PO ONE (11:03)
[2017-01-25] MEDS ORDERED: NITROGLYCERIN 2% OINTMENT 1 GM PACKET TP ONE (11:03)
[2017-01-25] MEDS ORDERED: LIDOCAINE 2% VISCOUS SOLN 20 ML UDCUP PO ONE (11:03)
[2017-01-25] MEDS ORDERED: METOCLOPRAMIDE HCL ORAL SOLN 10 MG/10 ML UDCUP PO ONE (11:03)
--- NOTE | 2017-01-25 11:03 | ER Document Report ---
ED General - General Stated Complaint: CHEST PAIN Time Seen by Provider: 01/25/17 10:49 Mode of Arrival: Medic Information source: Patient Notes: This is an 82-year-old female with a history of hypertension and CVA in the past who to the ER by EMS because of chest pressure. Patient denies any history of chest pain or cardiac problems. She states she was usual state of health when she started developing pressure across her chest. She states her right upper extremity was shaking. She denies any nausea or shortness of breath. When EMS arrived, her blood pressure was 190/98. She was given aspirin and sublingual nitroglycerin. She states that her pain is almost gone. TRAVEL OUTSIDE OF THE [place] IN LAST 30 DAYS: No - HPI Onset: Just prior to arrival Onset/Duration: Sudden Quality of pain: Dull Severity: Moderate Pain Level: 2 Associated symptoms: Chest pain. denies: Fever, Shortness of breath Exacerbated by: Denies Relieved by: Denies Similar symptoms previously: No Recently seen / treated by doctor: No - Related Data Allergies/Adverse Reactions: Penicillins Allergy (Verified 01/25/17 11:35) Sulfa (Sulfonamide Antibiotics) Allergy (Verified 01/25/17 11:35) Past Medical History - General Information source: Patient - Social History Smoking Status: Never Smoker Cigarette use (# per day): No Chew tobacco use (# tins/day): No Frequency of alcohol use: None Drug Abuse: None Lives with: Alone Family History: Hypertension, Malignancy Patient has suicidal ideation: No Patient has homicidal ideation: No - Past Medical History Cardiac Medical History: Reports: Hx Hypercholesterolemia, Hx Hypertension Neurological Medical History: Reports: Hx Cerebrovascular Accident - 2 Renal/ Medical History: Denies: Hx Peritoneal Dialysis Musculoskeltal Medical History: Reports Hx Arthritis Psychiatric Medical History: Denies: Hx Depression Infectious Medical History: Denies: Hx C-Diff Past Surgical History: Reports: Hx Cholecystectomy, Hx Orthopedic Surgery - Immunizations Hx Diphtheria, Pertussis, Tetanus Vaccination: Yes Hx Pneumococcal Vaccination: 04/13/11 Review of Systems - Review of Systems Constitutional: denies: Chills, Fever EENT: No symptoms reported Cardiovascular: See HPI Respiratory: No symptoms reported Gastrointestinal: No symptoms reported Genitourinary: No symptoms reported Female Genitourinary: No symptoms reported Musculoskeletal: No symptoms reported Skin: No symptoms reported Hematologic/Lymphatic: No symptoms reported Neurological/Psychological: No symptoms reported Physical Exam - Vital signs Vitals: Resp BP Pulse Ox 17 150/104 H 96 01/25/17 10:52 01/25/17 10:52 01/25/17 10:52 Notes: Physical exam: GENERAL: 82-year-old female, alert and oriented 3, no acute distress. Blood pressure 114/102 HEAD: Atraumatic, normocephalic. EYES: Pupils equal round and reactive to light, extraocular movements intact, sclera anicteric, conjunctiva are normal. ENT: TMs normal, nares patent, oropharynx clear without exudates. Moist mucous membranes. NECK: Normal range of motion, supple without lymphadenopathy or JVD. LUNGS: Breath sounds clear to auscultation bilaterally and equal. No wheezes rales or rhonchi. HEART: Regular rate and rhythm without murmurs, rubs or gallops. ABDOMEN: Soft, normoactive bowel sounds. No tenderness to palpation. No guarding, no rebound. No masses appreciated. EXTREMITIES: Normal range of motion, no pitting or edema. No clubbing or cyanosis. NEUROLOGICAL: Cranial nerves II through XII grossly intact. Normal speech, normal gait. PSYCH: Normal mood, normal affect. SKIN: Warm, Dry, normal turgor, no rashes or lesions noted. Course - Re-evaluation Re-evalutation: 01/25/17 17:[address] Desouza at [place]. Plan is for transfer for an STEMI. He has been given aspirin, nitrates. CT of the head was negative for any no infarct or bleed. Stool was dark but negative for heme. Patient was given Lovenox 01/25/17 18:51 Is doing well right now. She denies any chest pain. Transport is ready to take the [facility] to [facility] - Vital Signs Vital signs: Temp Pulse Resp BP Pulse Ox 98.0 F 79 20 126/73 H 99 01/25/17 11:07 01/25/17 11:07 01/25/17 18:01 01/25/17 18:01 01/25/17 18:01 - Laboratory Result Diagrams: 01/25/17 11:30 01/25/17 11:30 Laboratory results interpreted by me: 01/25/17 11:30 Sodium 132.5 L Carbon Dioxide 21 L - Diagnostic Test Radiology reviewed: Image reviewed, Reports reviewed - The head shows no acute bleed. Chest x-ray shows no infiltrate - EKG Interpretation by Me Rate: Normal Rhythm: NSR - He shows normal sinus rhythm with a ventricular rate of 80, left axis deviation poor R-wave progression, PVCs. No acute ST elevations or depressions Critical Care Note - Critical Care Note Total time excluding time spent on procedures (mins): 60 Discharge - Discharge Clinical Impression: NSTEMI Condition: Serious Disposition: [facility] Prescriptions: Methocarbamol [Robaxin 500 mg Tablet] 500 mg PO BID PRN #20 tablet PRN Reason: Methylprednisolone [Medrol 4 mg Dosepack 21 Tab/Pack] 4 mg PO ASDIR PRN #21 tab.ds.pk PRN Reason: Referrals: PENNY TREJO MD [Primary Care Provider] - Follow up as needed
--- NOTE | 2017-01-25 11:33 | RADIOLOGY REPORT (SQ) ---
EXAM DESCRIPTION: CHEST SINGLE VIEW COMPLETED DATE/TIME: 01/25/2017 11:16 am REASON FOR STUDY: bed 10 cp COMPARISON: 09/14/2016. NUMBER OF VIEWS: One view. TECHNIQUE: Single frontal radiographic view of the chest acquired. LIMITATIONS: None. FINDINGS: LUNGS AND PLEURA: No opacities, masses or pneumothorax. No pleural effusion. MEDIASTINUM AND HILAR STRUCTURES: No masses. Contour normal. HEART AND VASCULAR STRUCTURES: Heart normal in size. Normal vasculature. BONES: No acute findings. HARDWARE: None in the chest. OTHER: No other significant finding. IMPRESSION: NO SIGNIFICANT RADIOGRAPHIC FINDING IN THE CHEST. TECHNICAL DOCUMENTATION: JOB ID: [id number] [employer]- All Rights Reserved
[2017-01-25 12:01] LABS: ABSOLUTE EOSINOPHILS # (AUTO) 0.2 10^3/uL (0.0-0.6); ABSOLUTE LYMPHOCYTES (AUTO) 1.5 10^3/uL (0.5-4.7); ABSOLUTE MONOCYTES (AUTO) 0.8 10^3/uL (0.1-1.4); ABSOLUTE NEUT (AUTO) 5.7 10^3/uL (1.7-8.2); BASOPHILS % (AUTO) 0.6 % (0-2); HEMATOCRIT 41.7 % (36.0-47.0); HEMOGLOBIN 13.5 g/dL (12.0-15.5); HGB HCT DIFFERENCE -1.2; LYMPHOCYTES % (AUTO) 18.7 % (13-45); MEAN CORPUSCULAR HEMOGLOBIN 28.4 pg (27.0-33.4); MEAN CORPUSCULAR HGB CONC 32.4 g/dL (32.0-36.0); MEAN CORPUSCULAR VOLUME 88 fl (80-97); MONOCYTES % (AUTO) 9.3 % (3-13); RED BLOOD COUNT 4.77 10^6/uL (3.72-5.28); RED CELL DISTRIBUTION WIDTH 12.7 % (11.5-14.0); SEGMENTED NEUTROPHILS % (AUTO) 69.4 % (42-78); WHITE BLOOD COUNT 8.2 10^3/uL (4.0-10.5)
[2017-01-25 12:20] LABS: ALANINE AMINOTRANSFERASE 35 U/L (9-52); ALBUMIN 4.1 g/dL (3.5-5.0); ALKALINE PHOSPHATASE 64 U/L (38-126); ANION GAP 12 (5-19); ASPARTATE AMINO TRANSFERASE 33 U/L (14-36); BILIRUBIN,DIRECT 0.3 mg/dL (0.0-0.4); BILIRUBIN,TOTAL 0.5 mg/dL (0.2-1.3); BLOOD UREA NITROGEN 13 mg/dL (7-20); CALCIUM 9.5 mg/dL (8.4-10.2); CARBON DIOXIDE 21 mmol/L (22-30); CHLORIDE 100 mmol/L (98-107); CREATINE KINASE 135 U/L (30-135); CREATININE RESULT 0.77 mg/dL (0.52-1.25); GLUCOSE 89 mg/dL (75-110); POTASSIUM 4.8 mmol/L (3.6-5.0); SODIUM 132.5 mmol/L (137-145); TOTAL PROTEIN 7.1 g/dL (6.3-8.2)
[2017-01-25 12:32] LABS: CREATINE KINASE MB 1.95 ng/mL (<4.55)
[2017-01-25 12:35] LABS: TROPONIN I 0.106 ng/mL
[2017-01-25] MEDS ORDERED: METOCLOPRAMIDE HCL INJ/PF 10 MG/2 ML SDV IV ONE (12:35)
[2017-01-25] MEDS ORDERED: DIPHENHYDRAMINE HCL 50 MG/ML VIAL IV ONE (12:35)
--- NOTE | 2017-01-25 14:18 | RADIOLOGY REPORT (SQ) ---
EXAM DESCRIPTION: CT HEAD WITHOUT COMPLETED DATE/TIME: 01/25/2017 2:01 pm REASON FOR STUDY: pugh COMPARISON: 09/14/2016. 09/01/2016. TECHNIQUE: Axial images acquired through the brain without intravenous contrast. Images reviewed wi th bone, brain and subdural windows. Images stored on PACS. All CT scanners at this facility use dose modulation, iterative reconstruction, and/or weight based d osing when appropriate to reduce radiation dose to as low as reasonably achievable (ALARA). [facility]: Dose Right [facility]: CareDose [facility]: Dose Right [facility]: Teradose 4D [facility]: [employer] RADIATION DOSE: Up-to-date CT equipment and radiation dose reduction techniques were employed. CTDIv ol: 64.6 mGy. DLP: 1163 mGy-cm. mGy. LIMITATIONS: None. FINDINGS: VENTRICLES: Age-appropriate. Slight ex vacuo dilatation on the right. Stable appearance. CEREBRUM: Old right MCA distribution infarct, as before. No hemorrhage or mass or shift or suggestio n of acute infarct by CT. CEREBELLUM: No masses. No hemorrhage. No alteration of density. No evidence for acute infarction. EXTRAAXIAL SPACES: No fluid collections. No masses. ORBITS AND GLOBE: No intra- or extraconal masses. Normal contour of globe without masses. CALVARIUM: No fracture. PARANASAL SINUSES: No fluid or mucosal thickening. SOFT TISSUES: No mass or hematoma. OTHER: No other significant finding. IMPRESSION: 1. Chronic changes including old right MCA distribution infarct. No acute intracranial abnormality. Stable appearance. TECHNICAL DOCUMENTATION: JOB ID: [id number] Quality ID # [id number]: Final reports with documentation of one or more dose reduction techniques (e.g., Au tomated exposure control, adjustment of the mA and/or kV according to patient size, use of iterative reconstruction technique) 2010 [employer]- All Rights Reserved
--- NOTE | 2017-01-25 14:49 | EKG REPORT ---
SEVERITY:- ABNORMAL ECG - SINUS RHYTHM MULTIPLE VENTRICULAR PREMATURE COMPLEXES BORDERLINE LEFT AXIS DEVIATION ABNRM R PROG, CONSIDER ASMI OR LEAD PLACEMENT : Confirmed by: Rod Lennon MD 25-Jan-2017 14:49:05
[2017-01-25] MEDS ORDERED: ENOXAPARIN SODIUM INJ 100 MG/1 ML DISP.SYRIN SUBCUT ONE (17:04)
[2017-01-25 18:38] VITALS: BP 126/73
== END 2017-01-25 19:08 | disposition short-term general hospital (02) ==
LOC: ER 10:44
DX: I21.4 Non-ST elevation (NSTEMI) myocardial infarction (principal); R07.89 Other chest pain; I10 Essential (primary) hypertension; Z86.73 Personal history of transient ischemic attack (TIA), and cerebral infarction without residual deficits; Z88.0 Allergy status to penicillin; Z88.2 Allergy status to sulfonamides
CPT/HCPCS: 93005; 99291; 96372; 96374; 96375; 36415; 82553; 82550; 85025; 82272; 80053; 84484; 71010; 70450; 93010; A9270 ×2; J1200; J3490; J2765; J1650

== ENCOUNTER 2017-02-06 13:40 | Observation (INO) | payer MEDICARE, OTHER ==
--- NOTE | 2017-02-06 13:52 | ER Document Report ---
ED Medical Screen (RME) - General Chief Complaint: Rectal Bleeding Stated Complaint: HIGH BLOOD PRESSURE Time Seen by Provider: 02/06/17 13:51 Notes: Patient states that she has had rectal bleeding today 2 episodes. Some clots. She states she is on Brilinta. She denies any abdominal pain or vomiting. She states she has been dizzy and has had some headache. TRAVEL OUTSIDE OF THE [place] IN LAST 30 DAYS: No - Related Data Allergies/Adverse Reactions: Penicillins Allergy (Verified 02/06/17 13:41) Sulfa (Sulfonamide Antibiotics) Allergy (Verified 02/06/17 13:41) Past Medical History - Past Medical History Cardiac Medical History: Reports: Hx Hypercholesterolemia, Hx Hypertension Neurological Medical History: Reports: Hx Cerebrovascular Accident - 2 Renal/ Medical History: Denies: Hx Peritoneal Dialysis Musculoskeltal Medical History: Reports Hx Arthritis Psychiatric Medical History: Denies: Hx Depression Infectious Medical History: Denies: Hx C-Diff Past Surgical History: Reports: Hx Cholecystectomy, Hx Orthopedic Surgery - Immunizations Hx Diphtheria, Pertussis, Tetanus Vaccination: Yes Physical Exam - Vital signs Vitals: Temp Pulse Resp BP Pulse Ox 97.8 F 101 H 22 H 152/78 H 100 02/06/17 13:47 02/06/17 13:47 02/06/17 13:47 02/06/17 13:47 02/06/17 13:47 Course - Vital Signs Vital signs: Temp Pulse Resp BP Pulse Ox 97.8 F 101 H 22 H 152/78 H 100 02/06/17 13:47 02/06/17 13:47 02/06/17 13:47 02/06/17 13:47 02/06/17 13:47
[2017-02-06 14:12] LABS: ABSOLUTE EOSINOPHILS # (AUTO) 0.1 10^3/uL (0.0-0.6); ABSOLUTE LYMPHOCYTES (AUTO) 1.2 10^3/uL (0.5-4.7); ABSOLUTE MONOCYTES (AUTO) 0.5 10^3/uL (0.1-1.4); ABSOLUTE NEUT (AUTO) 4.3 10^3/uL (1.7-8.2); BASOPHILS % (AUTO) 0.6 % (0-2); EOSINOPHILS % (AUTO) 1.9 % (0-6); HEMOGLOBIN 14.3 g/dL (12.0-15.5); HGB HCT DIFFERENCE -0.1; LYMPHOCYTES % (AUTO) 20.1 % (13-45); MEAN CORPUSCULAR HEMOGLOBIN 28.9 pg (27.0-33.4); MEAN CORPUSCULAR HGB CONC 33.4 g/dL (32.0-36.0); MEAN CORPUSCULAR VOLUME 87 fl (80-97); MONOCYTES % (AUTO) 8.7 % (3-13); RED BLOOD COUNT 4.96 10^6/uL (3.72-5.28); RED CELL DISTRIBUTION WIDTH 12.5 % (11.5-14.0); SEGMENTED NEUTROPHILS % (AUTO) 68.7 % (42-78); WHITE BLOOD COUNT 6.2 10^3/uL (4.0-10.5)
[2017-02-06 14:28] LABS: ALANINE AMINOTRANSFERASE 43 U/L (9-52); ALBUMIN 4.9 g/dL (3.5-5.0); ALKALINE PHOSPHATASE 64 U/L (38-126); ANION GAP 12 (5-19); ASPARTATE AMINO TRANSFERASE 45 U/L (14-36); BILIRUBIN,DIRECT 0.3 mg/dL (0.0-0.4); BILIRUBIN,TOTAL 0.5 mg/dL (0.2-1.3); BLOOD UREA NITROGEN 14 mg/dL (7-20); CALCIUM 9.7 mg/dL (8.4-10.2); CARBON DIOXIDE 25 mmol/L (22-30); CHLORIDE 96 mmol/L (98-107); CREATININE RESULT 0.82 mg/dL (0.52-1.25); GLUCOSE 109 mg/dL (75-110); POTASSIUM 4.5 mmol/L (3.6-5.0); SODIUM 132.9 mmol/L (137-145)
[2017-02-06 14:31] LABS: APPEARANCE,URINE CLEAR; BILIRUBIN,URINE NEGATIVE (NEGATIVE); GLUCOSE, URINE NEGATIVE (NEGATIVE); KETONES,URINE NEGATIVE (NEGATIVE); LEUKOCYTE ESTERASE,URINE MODERATE (NEGATIVE); NITRITE,URINE NEGATIVE (NEGATIVE); PROTEIN,URINE NEGATIVE (NEGATIVE); URINE SPECIFIC GRAVITY 1.008; UROBILINOGEN,URINE NEGATIVE mg/dL (<2.0)
--- NOTE | 2017-02-06 14:31 | ER Document Report ---
ED General - General Information source: Patient TRAVEL OUTSIDE OF THE [place] IN LAST 30 DAYS: No - HPI Onset: Last week Associated symptoms: Other - see above <LIA ALBARADO - Last Filed: 02/06/17 23:59> <RAMEZ MICHAUD - Last Filed: 02/07/17 00:01> - General Chief Complaint: Rectal Bleeding Stated Complaint: HIGH BLOOD PRESSURE Time Seen by Provider: 02/06/17 13:51 Notes: Patient is an 82 year old female who presents to the ED with complaints of having bright red blood on toilet tissue paper x2 today without having a bowel movement. Patient is on a blood thinner. Patient states there is no blood in the toilet itself. Patient denies any pain with urination. Patient states she has chronic dizziness for the past year that is worse today. Patient states she could not drive today due to the dizziness. Patient states she is also lightheaded. Patient denies chest pain. Patient had an AR on January 25, 2017 but had no stent or bypass surgery. Patient also states she has a headaches daily, today it is worse than normal and located on the top of her head but patient states she has had headaches like this in the past. Alarm Mechanic: Dr. Reardon. (LIA ALBARADO) - Related Data Allergies/Adverse Reactions: Penicillins Allergy (Verified 02/06/17 13:41) Sulfa (Sulfonamide Antibiotics) Allergy (Verified 02/06/17 13:41) Home Medications: Current Home Medications Atorvastatin Calcium 10 mg PO DAILY 02/06/17 [History] Ticagrelor [Brilinta 90 mg Tablet] 1 tab PO BID 02/06/17 [History] Past Medical History - General Information source: Patient - Social History Smoking Status: Never Smoker Chew tobacco use (# tins/day): No Frequency of alcohol use: None Drug Abuse: None Family History: Hypertension, Malignancy Patient has suicidal ideation: No Patient has homicidal ideation: No - Past Medical History Cardiac Medical History: Reports: Hx Heart Attack, Hx Hypercholesterolemia, Hx Hypertension Neurological Medical History: Reports: Hx Cerebrovascular Accident - 2 Renal/ Medical History: Denies: Hx Peritoneal Dialysis Musculoskeltal Medical History: Reports Hx Arthritis Psychiatric Medical History: Denies: Hx Depression Infectious Medical History: Denies: Hx C-Diff Past Surgical History: Reports: Hx Cholecystectomy, Hx Orthopedic Surgery - Immunizations Hx Diphtheria, Pertussis, Tetanus Vaccination: Yes Hx Pneumococcal Vaccination: 04/13/11 <LIA ALBARADO - Last Filed: 02/06/17 23:59> Review of Systems - Review of Systems Constitutional: No symptoms reported EENT: No symptoms reported Cardiovascular: See HPI, Dizziness, Lightheaded. denies: Chest pain Respiratory: No symptoms reported Gastrointestinal: See HPI, Other - blood while wiping without bowel movement Genitourinary: No symptoms reported Female Genitourinary: No symptoms reported Musculoskeletal: No symptoms reported Skin: No symptoms reported Hematologic/Lymphatic: No symptoms reported Neurological/Psychological: See HPI, Headaches <JEANNE ALBARADOANDRA - Last Filed: 02/06/17 23:59> Physical Exam <VERENALIA - Last Filed: 02/06/17 23:59> <RAMEZ MICHAUD - Last Filed: 02/07/17 00:01> - Vital signs Vitals: Temp Pulse Resp BP Pulse Ox 97.8 F 101 H 22 H 152/78 H 100 02/06/17 13:47 02/06/17 13:47 02/06/17 13:47 02/06/17 13:47 02/06/17 13:47 - Notes Notes: GENERAL: Alert, interacts well. No acute distress. HEAD: Normocephalic, atraumatic. EYES: Pupils equal, round, and reactive to light. Extraocular movements intact. ENT: Oral mucosa moist, tongue midline. NECK: Full range of motion. Supple. Trachea midline. LUNGS: Clear to auscultation bilaterally, no wheezes, rales, or rhonchi. No respiratory distress. HEART: Regular rate and rhythm. No murmurs, gallops, or rubs. ABDOMEN: Soft, non-tender. Non-distended. Bowel sounds present in all 4 quadrants. RECTAL: small trace of blood on pad, bright red blood around outside of rectum, no hemorrhoids, no active bleeding. Small fissure. Chaperoned by JACQUELYN Borja and Khushbu. EXTREMITIES: Moves all 4 extremities spontaneously. trace pitting edema bilateral extremities, dorsalis pedis pulses 2/4 bilaterally. No cyanosis. NEUROLOGICAL: Alert and oriented x3. Normal speech. PSYCH: Normal affect, normal mood. SKIN: Warm, dry, normal turgor. No rashes or lesions noted. (LIA ALBARADO) Course - Laboratory Result Diagrams: 02/06/17 13:55 02/06/17 13:55 - Consults Dr. Reardon Time consulted: 18:34 Dr. Milner Time consulted: 20:36 <LIA ALBARADO - Last Filed: 02/06/17 23:59> - Laboratory Result Diagrams: 02/06/17 13:55 02/06/17 13:55 <RAMEZ MICHAUD - Last Filed: 02/07/17 00:01> - Re-evaluation Re-evalutation: 02/06/17 20:44 CBC unremarkable, CMP shows slightly low sodium otherwise unremarkable, troponin is concerning as it was initially 0.024 and then 2 hours later repeated and 0.036, this is indeterminate not positive, I did discuss this patient with Dr. Juan Manuel Rubio her content assistant from [facility], she states that as she has no concerning changes on her EKG and her symptoms are not classic for acute coronary syndrome he would recommend keeping her here on maximal medical therapy and trending her cardiac enzymes, if they become positive he is happy to accept her in transfer to their facility however at present she he would trend the cardiac enzymes. For the patient's urinary tract infection she has been started on doxycycline. The patient's stool was heme positive and she had a small rectal fissure on rectal examination. No need for operative intervention at this time. Hemoglobin is normal. Discussed the patient with Dr. Milner who agreed to accept the patient to his service in the [facility] as an observation patient. (RAMEZ MICHAUD) - Vital Signs Vital signs: Temp Pulse Resp BP Pulse Ox 97.8 F 101 H 17 111/58 L 97 02/06/17 13:47 02/06/17 13:47 02/06/17 23:02 02/06/17 23:02 02/06/17 23:02 - Laboratory Laboratory results interpreted by me: 02/06/17 02/06/17 13:55 14:10 Sodium 132.9 L Chloride 96 L AST 45 H Urine Blood SMALL H Ur Leukocyte Esterase MODERATE H - EKG Interpretation by Me Additional EKG results interpreted by me: 02/06/17 20:44 EKG shows EKG shows sinus rhythm at a rate of 74, left axis deviation, single PVC, poor R-wave progression, no ST segment elevations or depressions, nonspecific generalized T-wave flattening per my interpretation. (RAMEZ MICHAUD) - Consults Dr. Reardon Reason for consultation: 02/06/17 18:34 Discussed patient. He recommends that since the patient is kept here to track enzymes since patient is already on maximum and typical therapy. Patient can be transferred to [facility] if her enzymes become positive but there is currently no need for transfer. (LIA ALBARADO) Dr. Milner Reason for consultation: 02/06/17 20:[address] Milner. Patient is accepted for admission. (LIA ALBARADO) Discharge <LIA ALBARADO - Last Filed: 02/06/17 23:59> - Discharge Admitting Provider: Hospitalist Unit Admitted: IMCU <RAMEZ MICHAUD - Last Filed: 02/07/17 00:01> - Discharge Clinical Impression: Indeterminate troponin, Weakness, Rectal bleeding Acute cystitis Qualifiers: Hematuria presence: with hematuria Qualified Code(s): N30.01 - Acute cystitis with hematuria Condition: Fair Disposition: ADMITTED OBSERVATION Scribe Attestation: 02/07/17 00:01 I personally performed the services described in the documentation, reviewed and edited the documentation which was dictated to the scribe in my presence, and it accurately records my words and actions. (RAMEZ MICHAUD) Scribe Documentation - Scribe Written by Liliane:: liliane Javier, 02/06/2017, [id number] acting as scribe for :: Ronnie <LIA ALBARADO - Last Filed: 02/06/17 23:59>
--- NOTE | 2017-02-06 14:49 | RADIOLOGY REPORT (SQ) ---
EXAM DESCRIPTION: CT HEAD WITHOUT COMPLETED DATE/TIME: 02/06/2017 2:42 pm REASON FOR STUDY: dizziness, headache, newly on blood thinner COMPARISON: 01/25/2017 TECHNIQUE: Axial images acquired through the brain without intravenous contrast. Images reviewed wi th bone, brain and subdural windows. Images stored on PACS. All CT scanners at this facility use dose modulation, iterative reconstruction, and/or weight based d osing when appropriate to reduce radiation dose to as low as reasonably achievable (ALARA). [facility]: Dose Right [facility]: CareDose [facility]: Dose Right [facility]: Teradose 4D [facility]: AgBiome RADIATION DOSE: Up-to-date CT equipment and radiation dose reduction techniques were employed. CTDIv ol: 49.0 mGy. DLP: 881 mGy-cm.mGy. LIMITATIONS: None. FINDINGS: VENTRICLES: Prominent. CEREBRUM: No masses. No hemorrhage. No midline shift. Old right MCA territory infarct. Areas of l ow density in the white matter most likely due to chronic micro-vascular ischemic change. No evidenc e for acute infarction. CEREBELLUM: No masses. No hemorrhage. No alteration of density. No evidence for acute infarction. EXTRAAXIAL SPACES: Age-related involutional change. No fluid collections. No masses. ORBITS AND GLOBE: No intra- or extraconal masses. Normal contour of globe without masses. CALVARIUM: No fracture. PARANASAL SINUSES: No fluid or mucosal thickening. SOFT TISSUES: No mass or hematoma. OTHER: No other significant finding. IMPRESSION: CHRONIC CHANGES OF ATROPHY AND MICROVASCULAR ISCHEMIA. NO ACUTE PROCESS. TECHNICAL DOCUMENTATION: JOB ID: [id number] Quality ID # [id number]: Final reports with documentation of one or more dose reduction techniques (e.g., Au tomated exposure control, adjustment of the mA and/or kV according to patient size, use of iterative reconstruction technique) 2010 [employer]- All Rights Reserved
[2017-02-06 16:07] LABS: CREATINE KINASE MB 3.9 ng/mL (<4.55); TROPONIN I 0.024 ng/mL
[2017-02-06] MEDS ORDERED: ASPIRIN 325 MG TABLET PO ONE (18:27)
[2017-02-06] MEDS ORDERED: TICAGRELOR 90 MG TABLET PO SCH (19:00)
[2017-02-06] MEDS ORDERED: DOXYCYCLINE HYCLATE 100 MG TABLET PO ONE (20:41)
[2017-02-06] MEDS ORDERED: ATORVASTATIN CALCIUM 10 MG TABLET PO SCH (22:00)
[2017-02-06 22:45] LABS: PARTIAL THROMBOPLASTIN TIME 26.9 SEC (23.5-35.8); PROTHROMBIN TIME 13.3 SEC (11.4-15.4)
[2017-02-07] MEDS ORDERED: MAGNESIUM HYDROXIDE SUSP 30 ML UDCUP PO PRN (00:03)
[2017-02-07] MEDS ORDERED: PROMETHAZINE HCL 25 MG TABLET PO PRN (00:06)
[2017-02-07] MEDS ORDERED: ACETAMINOPHEN 325 MG TABLET PO PRN (00:06)
--- NOTE | 2017-02-07 00:35 | PDOC H&P ---
History of Present Illness Admission Date/PCP: 02/06/17 21:31 PENNY TREJO MD Cardiology Dr. Rubio, [facility] Patient complains of: Rectal bleeding History of Present Illness: DAILY DE SANTIAGO is a 82 year old female, status post non-ST elevation [place] the of this month, transferred to [facility], with by her account, neither cardiac catheterization nor stress test, started on Brilinta at that time, who presents to the emergency room for evaluation of 2 episodes of small amounts of bright red blood on toilet tissue the day of admission without having a bowel movement. No blood in the toilet itself. No prior such episodes. Small anal fissure noted by ER MD. Denies nausea vomiting, fever or chills, dysuria, chest or abdominal pain. Has a number of other minor complaints, including slight worsening of chronic dizziness, along with mild lightheadedness, and slight worsening of her chronic headaches. Currently resting quietly, without specific complaints. Prior to my seeing the patient, emergency room physician did discuss patient with Dr. Juan Manuel Rubio, her door to door selling distributor at [facility]. He did not feel that transfer was warranted for her indeterminate troponins, but did recommend keeping the patient in observation and trending troponins further. Hospitalized on our service the and 02 September of this year, with final diagnoses including transient ischemic attack, along with hypertensive emergency. Status post 2 prior strokes in 2014, without residual aftereffects. History and physical and discharge summary reviewed. Patient has been discussed with emergency room physician who evaluated the patient. . Dictation via voice recognition software. Laboratory results are listed in [employer] and are reviewed. X-ray summary results are listed below, with full report(s) reviewed. . EKG reviewed and compared to prior tracing from the of this month. Social history/personal habits: . Lives alone. Adult children. Retired. No use of alcohol tobacco or illicit drugs. Allergies/adverse reactions are listed in [facility] and are reviewed. Home medications initially autopopulated into [employer] may not accurately reflect patient's true medications, dosages, and/or frequencies. aircraft avionics technician to reconcile medications. Unfortunately, patient not certain of all medications/dosages/frequencies. REVIEW OF SYSTEMS: Constitutional: See history and present illness. Eyes: Wears glasses ENT: No swallowing problems or complaints. Partial hearing loss. Pulmonary: No current complaints. Cardiovascular: No current complaints, including chest pain. Gastrointestinal: See history and present illness. Skin: No current complaints, including rashes. Hematologic: Easy bruising. Neurologic: No current complaints, including numbness or tingling. Musculoskeletal: Intermittent chronic back pain from arthritis. Psychiatric: Denies anxiety or depression. Endocrine: No current complaints, including polyuria. Genitourinary: No current complaints, including dysuria. PHYSICAL EXAMINATION: 5 feet 3 inches tall. 77.9 kg. BMI 30.4 kg/m. Blood pressure 111/58. Pulse 81 and regular. 95% saturation on room air. Respirations are 17 and unlabored. Temperature 97.8. Slightly obese otherwise well-nourished well-developed female who appears a fair number of years younger than her stated age. Pleasant awake alert and cooperative. No obvious distress other than somewhat anxious. Skin is warm and dry. No grossly obvious evidence of rash in areas of skin examined. No subcutaneous nodules palpated. ENT: Hearing grossly normal to normal conversation. Tongue midline on protrusion pink and slightly tacky. Eyes: No scleral icterus. Pupils equal and reactive to light at 4 mm. [place] conjunctivae. Neck is supple and nontender to gentle active range of motion and palpation. Midline trachea. No palpable thyroid nodule mass enlargement or tenderness. Lymphatic: No palpable cervical or clavicular nodes. Neck and lymphatic exams limited by patient body habitus. Psychiatric: Reasonable insight into acute and chronic medical issues. Oriented to time location and why here. Lungs: Auscultation reveals clear and equal breath sounds bilaterally. No use of accessory respiratory muscles. Cardiovascular: Heart regular rate and rhythm, without gallop murmur or rub. No carotid or abdominal aortic bruits. No ankle or pedal edema. Faintly palpable dorsalis pedis pulses. Abdomen:soft slightly obese nontender with positive bowel sounds. Unable to adequately evaluate abdomen for masses or organomegaly due to body habitus. Extremities: Feet are warm and dry. No calf tenderness to compression. No grossly obvious visual evidence of calf swelling. Gentle manipulation of lower extremities fails to reveal any obvious evidence of injury or instability to knees hips or ankles. Neurologic: Moves upper extremities grossly normally. Patellar reflexes absent. Absent Babinski. Light touch is intact at feet. Dorsiflexion and plantarflexion of feet 5 / 5 and symmetric. 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 Denies: Hemorrhagic CVA, Seizures Endocrine Medical History: Denies: Diabetes Mellitus Type 1, Diabetes Mellitus Type 2, Hyperthyroidism, Hypothyroidism Renal/ Medical History: Reports: None GI Medical History: Denies: Cirrhosis, Gastroesophageal Reflux Disease, Hepatitis, Peptic Ulcer Disease Musculoskeltal Medical History: Reports: Arthritis, Other - Chronic intermittent left lower extremity swelling Skin Medical History: Reports: None Psychiatric Medical History: Denies: Alcohol Dependency, Depression, General Anxiety Disorder, Substance Abuse, Tobacco Dependency Hematology: Reports: Other - Easy bruising Infectious Medical History: Denies: Clostridium Difficile, Hepatitis B, Hepatitis C, Methicillin- Resistant Staph Aureus Past Surgical History Past Surgical History: Reports: Cholecystectomy, Orthopedic Surgery Social History Information Source: Patient, Emergency Med Personnel, [facility] Records Lives with: Alone Smoking Status: Never Smoker Frequency of Alcohol Use: None Hx Recreational Drug Use: No Drugs: None Hx Prescription Drug Abuse: No - Advance Directive Resuscitation Status: Full Code Surrogate healthcare decision maker:: Her 2 sons Family History Family History: Hypertension, Malignancy Parental Family History Reviewed: Yes - Father of cancer; mother of heart disease Children Family History Reviewed: Yes - Son status post surgery for renal cell carcinoma Sibling(s) Family History Reviewed.: Yes - Medication/Allergy Home Medications: Lisinopril [Prinivil 10 mg Tablet] 10 mg PO DAILY 09/02/16 Atorvastatin Calcium 10 mg PO DAILY 02/06/17 Ticagrelor [Brilinta 90 mg Tablet] 1 tab PO BID 02/06/17 Aspirin [Aspirin EC] 81 mg PO DAILY 02/07/17 Allergies/Adverse Reactions: Penicillins Allergy (Verified 02/07/17 00:10) HIVES SWELLING Sulfa (Sulfonamide Antibiotics) Allergy (Verified 02/07/17 00:10) HIVES SWELLING Physical Exam Vital Signs: Temp Pulse Resp BP Pulse Ox 97.8 F 101 H 17 111/58 L 97 02/06/17 13:47 02/06/17 13:47 02/06/17 23:02 02/06/17 23:02 02/06/17 23:02 Results Laboratory Results: 02/06/17 02/06/17 22:10 22:10 Magnesium 1.9 TSH 3.10 02/06/17 22:10 Troponin I 0.031 Impressions: Head CT 02/06/17 14:10 IMPRESSION: CHRONIC CHANGES OF ATROPHY AND MICROVASCULAR ISCHEMIA. NO ACUTE PROCESS. Assessment & Plan - Diagnosis (1) Anal fissure Is this a current diagnosis for this admission?: YesPlan: Likely the source of her rectal bleeding. Outpatient follow-up and management. (2) Generalized weakness Is this a current diagnosis for this admission?: YesPlan: Strongly encouraged patient not to get out of bed without notifying staff to avoid a fall with injury. Orthostatic vital signs every 4 hours while awake starting at 7 AM on the 28. Knee high SCDs for DVT prophylaxis, along with subcutaneous Lovenox. Impression and plans were discussed with patient who concurs. Time spent in evaluation and management of patient: 68 minutes. (3) History of non-ST elevation myocardial infarction (NSTEMI) Is this a current diagnosis for this admission?: YesPlan: As noted above, will trend her troponins, per recommendation of Dr. Rubio, her door to door selling distributor at [facility]. No chest pain. (4) Rectal bleeding Is this a current diagnosis for this admission?: YesPlan: Repeat CBC with differential. (5) UTI (urinary tract infection) Qualifiers: Urinary tract infection type: site unspecified Is this a current diagnosis for this admission?: YesPlan: Urine culture. Antibiotics. (6) Hyponatremia Is this a current diagnosis for this admission?: YesPlan: Chronic, mild. Follow-up Chem-7. (7) Hypertension Qualifiers: Hypertension type: essential hypertension Qualified Code(s): I10 - Essential (primary) hypertension Is this a current diagnosis for this admission?: YesPlan: Resume home medications as appropriate once these have been determined and reviewed. - Time Time Spent: 50 to 70 Minutes Medications reviewed and adjusted accordingly: Yes Anticipated discharge: Home Within: within 24 hours
[2017-02-07] MEDS ORDERED: AZTREONAM INJ 1 GM VIAL IV PRN (00:45)
[2017-02-07] MEDS ORDERED: AZTREONAM 1 GM in DEXTROSE 5%-WATER 50 ML IV ONE (01:00)
[2017-02-07] MEDS ORDERED: AZTREONAM INJ 1 GM VIAL ONE (02:16)
[2017-02-07 04:37] LABS: ABSOLUTE EOSINOPHILS # (AUTO) 0.1 10^3/uL (0.0-0.6); ABSOLUTE LYMPHOCYTES (AUTO) 1.5 10^3/uL (0.5-4.7); ABSOLUTE MONOCYTES (AUTO) 0.6 10^3/uL (0.1-1.4); ABSOLUTE NEUT (AUTO) 3.5 10^3/uL (1.7-8.2); BASOPHILS % (AUTO) 0.6 % (0-2); EOSINOPHILS % (AUTO) 2.3 % (0-6); HEMATOCRIT 36.8 % (36.0-47.0); HEMOGLOBIN 12.8 g/dL (12.0-15.5); HGB HCT DIFFERENCE 1.6; LYMPHOCYTES % (AUTO) 26.6 % (13-45); MEAN CORPUSCULAR HEMOGLOBIN 29.7 pg (27.0-33.4); MEAN CORPUSCULAR HGB CONC 34.6 g/dL (32.0-36.0); MEAN CORPUSCULAR VOLUME 86 fl (80-97); MONOCYTES % (AUTO) 9.5 % (3-13); RED CELL DISTRIBUTION WIDTH 12.1 % (11.5-14.0); WHITE BLOOD COUNT 5.8 10^3/uL (4.0-10.5)
[2017-02-07 04:50] LABS: ANION GAP 9 (5-19); BLOOD UREA NITROGEN 13 mg/dL (7-20); CALCIUM 9.4 mg/dL (8.4-10.2); CARBON DIOXIDE 23 mmol/L (22-30); CHLORIDE 103 mmol/L (98-107); CREATININE RESULT 0.71 mg/dL (0.52-1.25); GLUCOSE 90 mg/dL (75-110); POTASSIUM 4.7 mmol/L (3.6-5.0); SODIUM 135.3 mmol/L (137-145)
[2017-02-07] MEDS ORDERED: ENOXAPARIN SODIUM INJ 40 MG/0.4 ML DISP.SYRIN SUBCUT SCH (10:00)
[2017-02-07] MEDS ORDERED: ASPIRIN 81 MG TABLET, ENT COATED PO SCH (10:00)
[2017-02-07] MEDS ORDERED: AZTREONAM 1 GM in DEXTROSE 5%-WATER 50 ML IV SCH (10:00)
[2017-02-07] MEDS ORDERED: LISINOPRIL 10 MG TABLET PO SCH ×2 (10:00)
[2017-02-07] MEDS ORDERED: DOCUSATE SODIUM 100 MG CAPSULE PO SCH (10:00)
[2017-02-07] MEDS ORDERED: LOSARTAN POTASSIUM 25 MG TABLET PO SCH (10:00)
--- NOTE | 2017-02-07 11:54 | DISCHARGE SUMMARY E ---
Discharge Summary NAME: DAILY DE SANTIAGO : 1935 AGE: 82Y ADMITTED: 02/06/2017 DISCHARGED: 02/07/2017 CODE STATUS: FULL CODE. OUTPATIENT GRAPHIC DESIGN MANAGER: Dr. Reardon in [place] PRIMARY CARE PROVIDER: Dr. Garcia DISCHARGE DIAGNOSES: 1. Rectal bleeding which spontaneously resolved. 2. Coronary artery disease. 3. Recent NSTEMI. 4. Anal fissure contributory to the above. 5. Dizziness. 6. Hyponatremia mild. DISCHARGE MEDICATIONS: 1. Aspirin 81 mg p.o. daily. 2. Atorvastatin 10 mg p.o. at hour of sleep. 3. Brilinta 90 mg p.o. b.i.d. 4. Cozaar 25 mg p.o. daily. DIET: Heart healthy. ACTIVITY: As tolerated. Do recommend home health physical therapy. DIAGNOSTICS: Lab values are as follows: Hematology obtained on 02/07/2017: WBCs are 5.8, hemoglobin is 12.8, hematocrit is 36.8, platelet count is 215,00. Coagulation obtained on 02/06/2017: PT is 13.3. INR is 0.94. Chemistry obtained on 02/07/2017: Sodium is 135, potassium 4.7, chloride is 103, carbon dioxide 23, BUN 13, creatinine 0.71, glucose 90, calcium is 9.4, magnesium is 1.9, troponin is 0.016, TSH of 3.10, bilirubin is 0.5, AST 45, ALT is 43, alk phos 64, CK 96, CK-MB is 3.90. Urinalysis obtained on 02/06/2017: Color yellow, appearance clear, pH 5.0, specific gravity 1.008, protein negative, glucose negative, ketones negative, occult blood negative, nitrate small, bilirubin negative, urobilinogen negative, leukocyte esterase moderate, WBC 16, RBC 4, epithelial squamous cells 2, ascorbic acid negative. Other body sources obtained on 02/06/2017: Stool for occult blood is positive. Microbiology: Urine culture obtained on 02/06/2017 reveals no growth. EKG obtained on 02/06/[address] reveals sinus [address] Head CT obtained on 02/06/2017 reveals chronic changes of microvascular ischemia and atrophy but no acute process. HISTORY OF PRESENT ILLNESS: The patient is an 82-year-old female with a past medical history of coronary artery disease and recent NSTEMI. The patient presented to the emergency department with a chief complaint of rectal bleeding. Apparently the patient, on January 25, was transferred to [facility] due to findings of a NSTEMI. At that time the patient did not have a cardiac catheterization according to the patient nor a stress test. She was started on Brilinta for medical management. The patient was discharged on aspirin as well as the Brilinta. While in the emergency department here, the patient had an episode of 2 small amounts of bright red blood on her toilet tissue of admission but no substantive amount. The patient did not see any blood in the toilet herself. No prior episodes. The patient does complain of lightheadedness and dizziness as well as headache that she associates with an ANGI inhibitor. The patient states she has asked her physical education department chair if she could stop but she was denied according to the patient. The patient's case was discussed with the ER provider and with Dr. Reardon at [facility] who do not feel the patient warranted transfer but recommended keeping the patient in observation until her troponins were on a downward trend although only slightly elevated. Given these findings the patient was referred to the hospitalist for admission and management. HOSPITAL COURSE: The patient was admitted to continuous telemetry unit. Serial cardiac enzymes were obtained which were not suggestive. The patient's initial troponin was 0.024, however, her last troponin was 0.016. This is a downward trend. The patient's hemoglobin was overall relatively stable. The patient is not even in the range of anemia. The patient is not coagulopathic either. The patient had a very large bowel movement this morning and had no blood in it whatsoever. The patient's Brilinta was continued, starting with the emergency department. The patient will be referred out with stool softener given her hard stools did cause just some bleeding on the tissue paper. The patient's ANGI inhibitor was transitioned to an ARB which the patient tolerated well inpatient. The patient did have orthostatic BP which were not very suggestive of any process. The patient is quite eager for discharge. DISCHARGE PLANNING: The patient is advised to followup with her physical education department chair within 1 week for hospital followup. Time spent on this discharge including assessment, plan, physical examination, patient education, and review of records is 25 minutes. DICTATING PHYSICIAN: CALIXTO TIAN NP [id number] PHY#: [id number] ID: [id number] JOB#: [id number] ACCT: [id number] cc:AMBER SOLIZ M.D., MICHAEL NP >
--- NOTE | 2017-02-07 12:13 | EKG REPORT ---
SEVERITY:- ABNORMAL ECG - SINUS RHYTHM VENTRICULAR PREMATURE COMPLEX BORDERLINE LEFT AXIS DEVIATION CONSIDER ANTERIOR INFARCT BORDERLINE T ABNORMALITIES, INFERIOR LEADS : Confirmed by: Katarina Rodríguez MD 07-Feb-2017 12:13:08
[2017-02-07 12:23] VITALS: BP 133/75
[2017-02-07] MEDS ORDERED: ATORVASTATIN CALCIUM 10 MG TABLET PO SCH (22:00)
== END 2017-02-07 15:46 | disposition home or self-care (01) ==
LOC: ER 13:40 → EH 21:31 → UNDOADMOB 21:31 → EH 23:15 → 3W 23:35 → EH 23:35
PROVIDERS: ADMIT Family Medicine; ATTEND Family Medicine
DX: K62.5 Hemorrhage of anus and rectum (principal); I22.2 Subsequent non-ST elevation (NSTEMI) myocardial infarction; I25.10 Atherosclerotic heart disease of native coronary artery without angina pectoris; K60.2 Anal fissure, unspecified; R42 Dizziness and giddiness; E87.1 Hypo-osmolality and hyponatremia; I10 Essential (primary) hypertension; N39.0 Urinary tract infection, site not specified; Z86.73 Personal history of transient ischemic attack (TIA), and cerebral infarction without residual deficits
CPT/HCPCS: 93005; 99285; 36415 ×2; 87086; 82553; 82550; 83735; 84443; 85025 ×2; 85610; 85730; 82272; 80048; 80053; 81001; 84484 ×2; 70450; 93010; A9270 ×8; J3490 ×2; G0378

== ENCOUNTER 2017-03-04 21:12 | Emergency (ER) | payer MEDICARE, OTHER ==
--- NOTE | 2017-03-05 00:41 | ER Document Report ---
ED General - General Chief Complaint: Blood Pressure Problem Stated Complaint: BLOOD PRESSURE PROBLEM Time Seen by Provider: 03/05/17 00:19 Notes: Patient is an 82-year-old female comes emergency department for complaints of a headache, high blood pressure. she states she woke up from a nap with a bad headache, checked her blood pressure in the top number was about 200. She took Tylenol and came to the emergency department. She also complains of slight pain along her right lower rib, she states she thinks it just hurts with arthritis. She admits she has similar headaches to today almost every day. She is compliant with her losartan, does not take additional blood pressure medication. She denies visual changes, focal numbness or weakness, chest pain, shortness of breath, dizziness. TRAVEL OUTSIDE OF THE [place] IN LAST 30 DAYS: No - Related Data Allergies/Adverse Reactions: Penicillins Allergy (Verified 03/04/17 21:42) HIVES SWELLING Sulfa (Sulfonamide Antibiotics) Allergy (Verified 03/04/17 21:42) HIVES SWELLING Past Medical History - General Information source: Patient - Social History Smoking Status: Never Smoker Frequency of alcohol use: None Drug Abuse: None Lives with: Alone Family History: Hypertension, Malignancy - Past Medical History Cardiac Medical History: Reports: Hx Heart Attack, Hx Hypercholesterolemia, Hx Hypertension Denies: Hx Atrial Fibrillation, Hx Congestive Heart Failure, Hx DVT, Hx Pulmonary Embolism Pulmonary Medical History: Denies: Hx Asthma, Hx COPD, Hx Sleep Apnea Neurological Medical History: 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 Denies : Hx Seizures Endocrine Medical History: Denies: Hx Diabetes Mellitus Type 1, Hx Diabetes Mellitus Type 2, Hx Hyperthyroidism, Hx Hypothyroidism Renal/ Medical History: Denies: Hx Peritoneal Dialysis GI Medical History: Denies: Hx Cirrhosis, Hx Gastroesophageal Reflux Disease, Hx Hepatitis Musculoskeltal Medical History: Reports Hx Arthritis Psychiatric Medical History: Denies: Hx Depression Infectious Medical History: Denies: Hx C-Diff, Hx Hepatitis, Hx MRSA Past Surgical History: Reports: Hx Cholecystectomy, Hx Orthopedic Surgery - Immunizations Hx Diphtheria, Pertussis, Tetanus Vaccination: Yes Hx Pneumococcal Vaccination: 04/13/11 Review of Systems - Review of Systems Constitutional: No symptoms reported EENT: No symptoms reported Cardiovascular: See HPI Respiratory: No symptoms reported Gastrointestinal: No symptoms reported Genitourinary: No symptoms reported Female Genitourinary: No symptoms reported Musculoskeletal: No symptoms reported Skin: No symptoms reported Hematologic/Lymphatic: No symptoms reported Neurological/Psychological: See HPI Physical Exam - Vital signs Vitals: Temp Pulse Resp BP Pulse Ox 98.1 F 77 18 175/77 H 97 03/04/17 21:43 03/04/17 21:43 03/04/17 21:43 03/04/17 21:43 03/04/17 21:43 Interpretation: Normal - General General appearance: Appears well, Alert In distress: None - HEENT Head: Normocephalic, Atraumatic Eyes: Normal Conjunctiva: Normal Extraocular movements intact: Yes Eyelashes: Normal Pupils: PERRL Mouth/Lips: Normal Mucous membranes: Normal Pharynx: Normal Neck: Normal - Respiratory Respiratory status: No respiratory distress Chest status: Nontender Breath sounds: Normal. No: Decreased air movement, Wheezing Chest palpation: Normal - Cardiovascular Rhythm: Regular. No: Tachycardia Heart sounds: Normal auscultation, S1 appreciated, S2 appreciated Murmur: No - Abdominal Inspection: Normal Distension: No distension Bowel sounds: Normal Tenderness: Nontender Organomegaly: No organomegaly - Back Back: Normal, Nontender - Extremities General upper extremity: Normal inspection, Nontender, Normal color, Normal ROM , Normal temperature General lower extremity: Normal inspection, Nontender, Normal color, Normal ROM , Normal temperature, Normal weight bearing. No: Clinton's sign - Neurological Neuro grossly intact: Yes Cognition: Normal Orientation: AAOx4 [place] Coma Scale Eye Opening: Spontaneous [place] Coma Scale Verbal: Oriented [place] Coma Scale Motor: Obeys Commands [place] Coma Scale Total: 15 Speech: Normal Cranial nerves: Normal Cerebellar coordination: Normal Motor strength normal: LUE, RUE, LLE, RLE Additional motor exam normals: Equal compliance professional Sensory: Normal - Psychological Associated symptoms: Normal affect, Normal mood - Skin Skin Temperature: Warm Skin Moisture: Dry Skin Color: Normal Course - Re-evaluation Re-evalutation: Patient with unremarkable blood pressures, mild headache, normal neurological exam, alert and well-appearing. CAT scan of the head unremarkable, chest x-ray unremarkable, chemistry normal including kidney functioning. Patient was reevaluated and found to be sleeping comfortably, when she woke up she had no complaints, laughing and conversational. Low suspicion of underlying subarachnoid hemorrhage or other acute abnormality. Patient states she has been getting headaches frequently for a long time now. Patient requesting to go home now. Symptoms resolved with just the Tylenol patient took.vShe states she has a close follow-up with her provider already scheduled within the week. She states she will return if she worsens in any way including return or severe headache, vomiting, or any other concerning symptoms. - Vital Signs Vital signs: Temp Pulse Resp BP Pulse Ox 98.4 F 75 18 121/66 93 03/05/17 04:02 03/04/17 23:33 03/05/17 04:02 03/05/17 04:02 03/05/17 04:02 - Laboratory Result Diagrams: 03/05/17 01:25 Discharge - Discharge Clinical Impression: Elevated blood pressure reading Headache Qualifiers: Headache type: unspecified Headache chronicity pattern: acute headache Intractability: not intractable Qualified Code(s): R51 - Headache Condition: Stable Disposition: HOME, SELF-CARE Additional Instructions: Your imaging, examination, and workup do not indicate any concerning abnormalities. Follow-up with your primary care for additional management of your headaches and for additional monitoring. Return to emergency department for any concerning or worsening symptoms including return or severe headache, vomiting, dizziness, chest pain, etc. Referrals: PENNY TREJO MD [Primary Care Provider] - Follow up as needed
[2017-03-05 02:02] LABS: ALANINE AMINOTRANSFERASE 38 U/L (9-52); ALBUMIN 4.3 g/dL (3.5-5.0); ALKALINE PHOSPHATASE 71 U/L (38-126); ANION GAP 11 (5-19); ASPARTATE AMINO TRANSFERASE 34 U/L (14-36); BILIRUBIN,DIRECT 0.3 mg/dL (0.0-0.4); BILIRUBIN,TOTAL 0.6 mg/dL (0.2-1.3); BLOOD UREA NITROGEN 14 mg/dL (7-20); CALCIUM 9.7 mg/dL (8.4-10.2); CARBON DIOXIDE 25 mmol/L (22-30); CHLORIDE 102 mmol/L (98-107); CREATININE RESULT 0.71 mg/dL (0.52-1.25); GLUCOSE 98 mg/dL (75-110); POTASSIUM 4.1 mmol/L (3.6-5.0); SODIUM 137.6 mmol/L (137-145); TOTAL PROTEIN 6.8 g/dL (6.3-8.2)
--- NOTE | 2017-03-05 03:18 | RADIOLOGY REPORT (SQ) ---
EXAM DESCRIPTION: CT HEAD WITHOUT COMPLETED DATE/TIME: 03/05/2017 3:05 am REASON FOR STUDY: headache, hypertension, on plavix COMPARISON: 02/06/2017. TECHNIQUE: Axial images acquired through the brain without intravenous contrast. Images reviewed wi th bone, brain and subdural windows. Images stored on PACS. All CT scanners at this facility use dose modulation, iterative reconstruction, and/or weight based d osing when appropriate to reduce radiation dose to as low as reasonably achievable (ALARA). [facility]: Dose Right [facility]: CareDose [facility]: Dose Right [facility]: Teradose 4D [facility]: [employer] RADIATION DOSE: Up-to-date CT equipment and radiation dose reduction techniques were employed. CTDIv ol: 64.6 mGy. DLP: 1163 mGy-cm. mGy. LIMITATIONS: None. FINDINGS: VENTRICLES: Normal size and contour. CEREBRUM: No masses. No hemorrhage. No midline shift. Normal yi/white matter differentiation. N o evidence for acute infarction. 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 CEREBELLUM: No masses. No hemorrhage. No alteration of density. No evidence for acute infarction. EXTRAAXIAL SPACES: No fluid collections. No masses. Atherosclerosis. ORBITS AND GLOBE: No intra- or extraconal masses. Normal contour of globe without masses. CALVARIUM: No fracture. PARANASAL SINUSES: No fluid or mucosal thickening. SOFT TISSUES: No mass or hematoma. OTHER: No other significant finding. IMPRESSION: No acute findings. TECHNICAL DOCUMENTATION: JOB ID: [id number] Quality ID # [id number]: Final reports with documentation of one or more dose reduction techniques (e.g., Au tomated exposure control, adjustment of the mA and/or kV according to patient size, use of iterative reconstruction technique) 2010 [employer]- All Rights Reserved
--- NOTE | 2017-03-05 03:35 | RADIOLOGY REPORT (SQ) ---
EXAM DESCRIPTION: CHEST SINGLE VIEW COMPLETED DATE/TIME: 03/05/2017 3:19 am REASON FOR STUDY: right rib pain COMPARISON: 01/25/2017. EXAM PARAMETERS: NUMBER OF VIEWS: One view. TECHNIQUE: Single frontal radiographic view of the chest acquired. RADIATION DOSE: NA LIMITATIONS: None. FINDINGS: LUNGS AND PLEURA: No opacities, masses or pneumothorax. No pleural effusion. MEDIASTINUM AND HILAR STRUCTURES: No masses. Contour normal. HEART AND VASCULAR STRUCTURES: Heart normal in size. Normal vasculature. BONES: Small chronic deformity of right upper -mid posterior ribs consistent with old injury. Left p roximal humeral arthroplasty. HARDWARE: None in the chest. OTHER: No other significant finding. IMPRESSION: NO ACUTE RADIOGRAPHIC FINDING IN THE CHEST. TECHNICAL DOCUMENTATION: JOB ID: [id number]
[2017-03-05 04:19] VITALS: BP 121/66
== END 2017-03-05 04:19 | disposition home or self-care (01) ==
LOC: ER 21:12
DX: I10 Essential (primary) hypertension (principal); I25.2 Old myocardial infarction; R51 Headache; R07.81 Pleurodynia; Z79.899 Other long term (current) drug therapy; Z88.0 Allergy status to penicillin; Z88.2 Allergy status to sulfonamides; Z86.73 Personal history of transient ischemic attack (TIA), and cerebral infarction without residual deficits
CPT/HCPCS: 36415; 70450; 71010; 80053; 99284

== ENCOUNTER 2017-03-27 23:57 | Emergency (ER) | payer MEDICARE, OTHER ==
--- NOTE | 2017-03-28 00:32 | RADIOLOGY REPORT (SQ) ---
EXAM DESCRIPTION: CHEST SINGLE VIEW COMPLETED DATE/TIME: 03/28/2017 12:23 am REASON FOR STUDY: CP COMPARISON: 03/05/2017. EXAM PARAMETERS: NUMBER OF VIEWS: One view. TECHNIQUE: Single frontal radiographic view of the chest acquired. RADIATION DOSE: NA LIMITATIONS: None. FINDINGS: LUNGS AND PLEURA: Moderate emphysematous hyperinflation. Mild interstitial markings, embedded systems developer rashid. MEDIASTINUM AND HILAR STRUCTURES: No masses. Contour normal. HEART AND VASCULAR STRUCTURES: Borderline cardiac silhouette size. BONES: Deformity of posterolateral right 4th, 5th, and 6th ribs, chronic. HARDWARE: Left shoulder hemiarthroplasty involves left proximal humeral hardware. OTHER: No other significant finding. IMPRESSION: No acute cardiopulmonary findings. TECHNICAL DOCUMENTATION: JOB ID: [id number]
[2017-03-28 01:01] LABS: ABSOLUTE BASOPHILS # (AUTO) 0.1 10^3/uL (0.0-0.2); ABSOLUTE EOSINOPHILS # (AUTO) 0.3 10^3/uL (0.0-0.6); ABSOLUTE LYMPHOCYTES (AUTO) 1.9 10^3/uL (0.5-4.7); ABSOLUTE MONOCYTES (AUTO) 0.5 10^3/uL (0.1-1.4); ABSOLUTE NEUT (AUTO) 3.6 10^3/uL (1.7-8.2); BASOPHILS % (AUTO) 0.8 % (0-2); EOSINOPHILS % (AUTO) 4.1 % (0-6); HEMATOCRIT 36.8 % (36.0-47.0); HEMOGLOBIN 12.5 g/dL (12.0-15.5); HGB HCT DIFFERENCE 0.7; MEAN CORPUSCULAR HEMOGLOBIN 29.3 pg (27.0-33.4); MEAN CORPUSCULAR VOLUME 86 fl (80-97); MONOCYTES % (AUTO) 8.2 % (3-13); RED BLOOD COUNT 4.26 10^6/uL (3.72-5.28); RED CELL DISTRIBUTION WIDTH 13.3 % (11.5-14.0); SEGMENTED NEUTROPHILS % (AUTO) 56.9 % (42-78); WHITE BLOOD COUNT 6.4 10^3/uL (4.0-10.5)
[2017-03-28 01:18] LABS: ALANINE AMINOTRANSFERASE 32 U/L (9-52); ALBUMIN 3.9 g/dL (3.5-5.0); ALKALINE PHOSPHATASE 63 U/L (38-126); ANION GAP 12 (5-19); ASPARTATE AMINO TRANSFERASE 32 U/L (14-36); BILIRUBIN,DIRECT 0.3 mg/dL (0.0-0.4); BILIRUBIN,TOTAL 0.4 mg/dL (0.2-1.3); BLOOD UREA NITROGEN 14 mg/dL (7-20); CALCIUM 9.6 mg/dL (8.4-10.2); CARBON DIOXIDE 23 mmol/L (22-30); CHLORIDE 104 mmol/L (98-107); CREATININE RESULT 0.64 mg/dL (0.52-1.25); GLUCOSE 91 mg/dL (75-110); POTASSIUM 4.1 mmol/L (3.6-5.0); SODIUM 138.9 mmol/L (137-145); TOTAL PROTEIN 6.4 g/dL (6.3-8.2)
--- NOTE | 2017-03-28 02:43 | ER Document Report ---
ED General - General Chief Complaint: Chest Pain Stated Complaint: CHEST PAIN Time Seen by Provider: 03/28/17 00:20 Notes: Patient is an 82-year-old female with past medical history of hypertension, hyperlipidemia, prior CVAs who presents with multiple complaints. Her complaints are varying and different based on who she speaking to. Apparently initially concerned to EMS is that she had several episodes of chest pain today and was concerned about her blood pressure. In triage, patient noted intermittent chest pain but denied any concerns about a headache or sinus pressure. To me, the patient complains mostly about pressure over her bilateral maxillary sinuses as well as a sore throat as well as concerns about her blood pressure. She denies any chest pain to me whatsoever. At time of evaluation, her main focus is about her blood pressure which she states has been more elevated and she noted to be up to 160 systolic today. She did take labetalol at home that her primary has prescribed to her to take as needed for episodes of hypertension and headache. She does note that this resolved her blood pressure issue. In regards her sinus pressure she states that this is been present for the past 3-4 days. He has been improved by Claritin. Nothing is noted to worsen her symptoms. Has a history of similar symptoms in the past. She has not spoken to her primary care doctor regarding this concern. TRAVEL OUTSIDE OF THE [place] IN LAST 30 DAYS: No - Related Data Allergies/Adverse Reactions: Penicillins Allergy (Verified 03/04/17 21:42) HIVES SWELLING Sulfa (Sulfonamide Antibiotics) Allergy (Verified 03/04/17 21:42) HIVES SWELLING Past Medical History - General Information source: Patient - Social History Smoking Status: Never Smoker Chew tobacco use (# tins/day): No Frequency of alcohol use: None Drug Abuse: None Lives with: Alone Family History: Hypertension, Malignancy - Past Medical History Cardiac Medical History: Reports: Hx Heart Attack, Hx Hypercholesterolemia, Hx Hypertension Denies: Hx Atrial Fibrillation, Hx Congestive Heart Failure, Hx DVT, Hx Pulmonary Embolism Pulmonary Medical History: Denies: Hx Asthma, Hx COPD, Hx Sleep Apnea Neurological Medical History: 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 Denies : Hx Seizures Endocrine Medical History: Denies: Hx Diabetes Mellitus Type 1, Hx Diabetes Mellitus Type 2, Hx Hyperthyroidism, Hx Hypothyroidism Renal/ Medical History: Denies: Hx Peritoneal Dialysis GI Medical History: Denies: Hx Cirrhosis, Hx Gastroesophageal Reflux Disease, Hx Hepatitis Musculoskeltal Medical History: Reports Hx Arthritis Psychiatric Medical History: Denies: Hx Depression Infectious Medical History: Denies: Hx C-Diff, Hx Hepatitis, Hx MRSA Past Surgical History: Reports: Hx Cholecystectomy, Hx Orthopedic Surgery - Immunizations Hx Diphtheria, Pertussis, Tetanus Vaccination: Yes Hx Pneumococcal Vaccination: 04/13/11 Review of Systems - Review of Systems Notes: Constitutional: Negative for fever. HENT: Negative for sore throat. Eyes: Negative for visual changes. Cardiovascular: Negative for chest pain. Respiratory: Negative for shortness of breath. Gastrointestinal: Negative for abdominal pain, vomiting or diarrhea. Genitourinary: Negative for dysuria. Musculoskeletal: Negative for back pain. Skin: Negative for rash. Neurological: Positive for headache 10 point ROS negative except as marked above and in HPI. Physical Exam - Vital signs Vitals: Resp Pulse Ox 23 H 96 03/28/17 00:15 03/28/17 00:15 Interpretation: Normal Notes: PHYSICAL EXAMINATION: GENERAL: Well-appearing, well-nourished and in no acute distress. HEAD: Atraumatic, normocephalic. EYES: Pupils equal round and reactive to light, extraocular movements intact, sclera anicteric, conjunctiva are normal. ENT: nares patent, oropharynx clear without exudates. Moist mucous membranes. NECK: Normal range of motion, supple without lymphadenopathy LUNGS: Breath sounds clear to auscultation bilaterally and equal. No wheezes rales or rhonchi. HEART: Regular rate and rhythm without murmurs ABDOMEN: Soft, nontender, normoactive bowel sounds. No guarding, no rebound. No masses appreciated. EXTREMITIES: Normal range of motion, no pitting or edema. No cyanosis. NEUROLOGICAL: No focal neurological deficits. Moves all extremities spontaneously and on command. PSYCH: Normal mood, normal affect. SKIN: Warm, Dry, normal turgor, no rashes or lesions noted. Course - Re-evaluation Re-evalutation: 03/28/17 02:41 Patient presents with multiple vague complaints that did not appear to be concerning for any acute life-threatening pathology. Vitals are within normal limits at triage and at time of discharge. Physical examination is unremarkable. Patient has tolerated oral intake without difficulty. Patient was not noted to be in distress at any point during their ER visit. At this time, based on the reassuring evaluation, I do not suspect an acute SC, pulmonary embolus, aortic dissection, acute intra-abdominal pathology, stroke, or sepsis. Although in triage patient apparently complained of chest pain, to me she denied this complaint altogether. She was more focused on sinus pressure as well as intermittent sore throat. Examination of these areas is likewise unremarkable. Will discharge with return precautions and follow-up recommendations. Verbal discharge instructions given a the bedside and opportunity for questions given. Medication warnings reviewed. Patient is in agreement with this plan and has verbalized understanding of return precautions and the need for primary care follow-up in the next 24-72 hours. - Vital Signs Vital signs: Temp Pulse Resp BP Pulse Ox 98.1 F 70 20 139/71 H 95 03/28/17 00:20 03/28/17 00:20 03/28/17 01:01 03/28/17 01:01 03/28/17 01:01 - Laboratory Result Diagrams: 03/28/17 00:50 03/28/17 00:50 - Diagnostic Test Radiology reviewed: Image reviewed, Reports reviewed Radiology results interpreted by me: 03/28/17 02:42 Chest x-ray: No acute infiltrate or pneumothorax - EKG Interpretation by Me Additional EKG results interpreted by me: 03/28/17 02:42 Sinus rhythm. Rate 69. No ST elevations or depressions. QTC is 446. Discharge - Discharge Clinical Impression: Sinus pressure, Lightheaded Hypertension Qualifiers: Hypertension type: essential hypertension Qualified Code(s): I10 - Essential ( primary) hypertension Condition: Good Disposition: HOME, SELF-CARE Additional Instructions: Please return to the emergency room immediately if you experience any concerning symptoms including high fevers, severe headache, chest pain, difficulty breathing, abdominal pain, slurred speech, numbness or weakness in your arms or legs, or any other symptom that concerns you. Referrals: PENNY TREJO MD [Primary Care Provider] - Follow up as needed
[2017-03-28 03:47] VITALS: BP 138/68
--- NOTE | 2017-03-28 08:05 | EKG REPORT ---
SEVERITY:- BORDERLINE ECG - SINUS RHYTHM BORDERLINE LEFT AXIS DEVIATION CONSIDER ANTERIOR INFARCT : Confirmed by: Alicia Jones 28-Mar-2017 08:03:38
== END 2017-03-28 03:46 | disposition home or self-care (01) ==
LOC: ER 23:57
DX: R42 Dizziness and giddiness (principal); I10 Essential (primary) hypertension; R07.9 Chest pain, unspecified; E78.00 Pure hypercholesterolemia, unspecified; Z86.73 Personal history of transient ischemic attack (TIA), and cerebral infarction without residual deficits; Z88.0 Allergy status to penicillin; Z88.2 Allergy status to sulfonamides
CPT/HCPCS: 36415; 71010; 80053; 84484; 85025; 93005; 93010; 99285

== ENCOUNTER 2017-07-14 17:39 | Emergency (ER) | payer MEDICARE, OTHER ==
--- NOTE | 2017-07-14 18:35 | ER Document Report ---
ED Medical Screen (RME) - General Chief Complaint: Chest Pain Stated Complaint: CHEST PAIN Time Seen by Provider: 07/14/17 18:27 Notes: This 82-year-old female patient with known coronary artery disease who is hard of hearing even with her hearing aids in comes emergency room complaining of chest pain today that was relieved with nitroglycerin. She reports weight gain in the last 2 days with swelling of her legs, left much worse than right. She also complains of a sore throat for 3-4 weeks and she is coughing quite a lot. She does have pitting edema to lower extremities, the left is worse than the right, it is tender to palpate that area. There is no tenderness to palpate in the calf itself. I have greeted and performed a rapid initial assessment of this patient. A comprehensive ED assessment and evaluation of the patient, analysis of test results and completion of the medical decision making process will be conducted by additional ED providers. TRAVEL OUTSIDE OF THE [place] IN LAST 30 DAYS: No - Related Data Allergies/Adverse Reactions: Penicillins Allergy (Verified 07/14/17 18:01) HIVES SWELLING Sulfa (Sulfonamide Antibiotics) Allergy (Verified 07/14/17 18:01) HIVES SWELLING Home Medications: Current Home Medications Clopidogrel Bisulfate [Plavix 75 mg Tablet] 75 mg PO DAILY 07/14/17 [History] Labetalol HCl 200 mg PO BID 07/14/17 [History] Losartan Potassium 25 mg PO DAILY 07/14/17 [History] Nitroglycerin [Nitrostat] 0.4 mg SL ASDIR PRN 07/14/17 [History] Past Medical History - Social History Chew tobacco use (# tins/day): No Frequency of alcohol use: None Drug Abuse: None - Past Medical History Cardiac Medical History: Reports: Hx Heart Attack, Hx Hypercholesterolemia, Hx Hypertension Denies: Hx Atrial Fibrillation, Hx Congestive Heart Failure, Hx DVT, Hx Pulmonary Embolism Pulmonary Medical History: Denies: Hx Asthma, Hx COPD, Hx Sleep Apnea Neurological Medical History: 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 Denies : Hx Seizures Endocrine Medical History: Denies: Hx Diabetes Mellitus Type 1, Hx Diabetes Mellitus Type 2, Hx Hyperthyroidism, Hx Hypothyroidism Renal/ Medical History: Denies: Hx Peritoneal Dialysis GI Medical History: Denies: Hx Cirrhosis, Hx Gastroesophageal Reflux Disease, Hx Hepatitis Musculoskeltal Medical History: Reports Hx Arthritis Psychiatric Medical History: Denies: Hx Depression Infectious Medical History: Denies: Hx C-Diff, Hx Hepatitis, Hx MRSA Past Surgical History: Reports: Hx Cholecystectomy, Hx Orthopedic Surgery - shoulder - Immunizations Hx Diphtheria, Pertussis, Tetanus Vaccination: Yes Physical Exam - Vital signs Vitals: Temp Pulse Resp BP Pulse Ox 97.8 F 69 22 H 152/65 H 99 07/14/17 18:00 07/14/17 18:00 07/14/17 18:00 07/14/17 18:00 07/14/17 18:00 Course - Vital Signs Vital signs: Temp Pulse Resp BP Pulse Ox 97.8 F 69 22 H 152/65 H 99 07/14/17 18:00 07/14/17 18:00 07/14/17 18:00 07/14/17 18:00 07/14/17 18:00
--- NOTE | 2017-07-14 19:12 | RADIOLOGY REPORT (SQ) ---
EXAM DESCRIPTION: CHEST SINGLE VIEW COMPLETED DATE/TIME: 07/14/2017 7:01 pm REASON FOR STUDY: Chest pain COMPARISON: None. NUMBER OF VIEWS: One view. TECHNIQUE: Single frontal radiographic view of the chest acquired. LIMITATIONS: None. FINDINGS: LUNGS AND PLEURA: No opacities, masses or pneumothorax. No pleural effusion. Attenuated bl ood vessels and flattened robb-diaphragms. MEDIASTINUM AND HILAR STRUCTURES: No masses. Contour normal. HEART AND VASCULAR STRUCTURES: Heart normal in size. Normal vasculature. BONES: Osteopenia. No acute fracture evident. Old right rib fractures. HARDWARE: None in the chest. OTHER: No other significant finding. IMPRESSION: COPD. NO ACUTE RADIOGRAPHIC FINDING IN THE CHEST. TECHNICAL DOCUMENTATION: JOB ID: [id number] [employer]- All Rights Reserved
[2017-07-14 19:37] LABS: ABSOLUTE BASOPHILS # (AUTO) 0.1 10^3/uL (0.0-0.2); ABSOLUTE EOSINOPHILS # (AUTO) 0.3 10^3/uL (0.0-0.6); ABSOLUTE LYMPHOCYTES (AUTO) 2.3 10^3/uL (0.5-4.7); ABSOLUTE MONOCYTES (AUTO) 0.6 10^3/uL (0.1-1.4); ABSOLUTE NEUT (AUTO) 3.5 10^3/uL (1.7-8.2); EOSINOPHILS % (AUTO) 4.1 % (0-6); HEMATOCRIT 39.2 % (36.0-47.0); HEMOGLOBIN 12.9 g/dL (12.0-15.5); LYMPHOCYTES % (AUTO) 34.1 % (13-45); MEAN CORPUSCULAR HEMOGLOBIN 28.4 pg (27.0-33.4); MEAN CORPUSCULAR HGB CONC 32.8 g/dL (32.0-36.0); MEAN CORPUSCULAR VOLUME 87 fl (80-97); MONOCYTES % (AUTO) 9.4 % (3-13); PLATELET COUNT 270 10^3/uL (150-450); RED BLOOD COUNT 4.53 10^6/uL (3.72-5.28); RED CELL DISTRIBUTION WIDTH 13.6 % (11.5-14.0); SEGMENTED NEUTROPHILS % (AUTO) 51.4 % (42-78); TOTAL CELLS COUNTED % (AUTO) 100 %; WHITE BLOOD COUNT 6.8 10^3/uL (4.0-10.5)
[2017-07-14 19:56] LABS: ALANINE AMINOTRANSFERASE 34 U/L (9-52); ALBUMIN 4.2 g/dL (3.5-5.0); ALKALINE PHOSPHATASE 73 U/L (38-126); ANION GAP 10 (5-19); ASPARTATE AMINO TRANSFERASE 36 U/L (14-36); BILIRUBIN,DIRECT 0.2 mg/dL (0.0-0.4); BILIRUBIN,TOTAL 0.2 mg/dL (0.2-1.3); BLOOD UREA NITROGEN 14 mg/dL (7-20); CALCIUM 10.1 mg/dL (8.4-10.2); CARBON DIOXIDE 27 mmol/L (22-30); CHLORIDE 100 mmol/L (98-107); CREATINE KINASE 353 U/L (30-135); GLUCOSE 91 mg/dL (75-110); POTASSIUM 4.4 mmol/L (3.6-5.0); SODIUM 137.3 mmol/L (137-145); TOTAL PROTEIN 6.7 g/dL (6.3-8.2)
[2017-07-14 20:05] LABS: CREATINE KINASE MB 0.68 ng/mL (<4.55); NT PRO BNP 253 pg/mL (<450)
[2017-07-14 20:10] LABS: TROPONIN I < 0.012 ng/mL
--- NOTE | 2017-07-14 20:28 | ER Document Report ---
ED General - General Chief Complaint: Chest Pain Stated Complaint: CHEST PAIN Time Seen by Provider: 07/14/17 18:27 Mode of Arrival: Ambulatory Information source: Patient TRAVEL OUTSIDE OF THE [place] IN LAST 30 DAYS: No - HPI Onset: Other - 2 DAYS Onset/Duration: Gradual Quality of pain: Dull - HEAD, Sharp - R. CHEST, Other - THROAT SORENESS Severity: Moderate Associated symptoms: Body/muscle aches, Chest pain, Chills, Productive cough, Fever, Nausea. denies: Shortness of breath Exacerbated by: Coughing Relieved by: Remaining still - Related Data Allergies/Adverse Reactions: Penicillins Allergy (Verified 07/14/17 18:01) HIVES SWELLING Sulfa (Sulfonamide Antibiotics) Allergy (Verified 07/14/17 18:01) HIVES SWELLING Home Medications: Current Home Medications Clopidogrel Bisulfate [Plavix 75 mg Tablet] 75 mg PO DAILY 07/14/17 [History] Labetalol HCl 200 mg PO BID 07/14/17 [History] Losartan Potassium 25 mg PO DAILY 07/14/17 [History] Nitroglycerin [Nitrostat] 0.4 mg SL ASDIR PRN 07/14/17 [History] Past Medical History - General Information source: Patient - Social History Smoking Status: Former Smoker Chew tobacco use (# tins/day): No Frequency of alcohol use: None Drug Abuse: None Family History: Hypertension, Malignancy Patient has suicidal ideation: No Patient has homicidal ideation: No - Past Medical History Cardiac Medical History: Reports: Hx Heart Attack, Hx Hypercholesterolemia, Hx Hypertension Denies: Hx Atrial Fibrillation, Hx Congestive Heart Failure, Hx DVT, Hx Pulmonary Embolism Pulmonary Medical History: Denies: Hx Asthma, Hx COPD - DENIES, Hx Sleep Apnea Neurological Medical History: 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 Denies : Hx Seizures Endocrine Medical History: Denies: Hx Diabetes Mellitus Type 1, Hx Diabetes Mellitus Type 2, Hx Hyperthyroidism, Hx Hypothyroidism Renal/ Medical History: Denies: Hx Peritoneal Dialysis GI Medical History: Denies: Hx Cirrhosis, Hx Gastroesophageal Reflux Disease, Hx Hepatitis Musculoskeltal Medical History: Reports Hx Arthritis Psychiatric Medical History: Denies: Hx Depression Infectious Medical History: Denies: Hx C-Diff, Hx Hepatitis, Hx MRSA Past Surgical History: Reports: Hx Cholecystectomy, Hx Orthopedic Surgery - shoulder - Immunizations Hx Diphtheria, Pertussis, Tetanus Vaccination: Yes Hx Pneumococcal Vaccination: 04/13/11 Review of Systems - Review of Systems Constitutional: See HPI EENT: See HPI Cardiovascular: See HPI Respiratory: See HPI Gastrointestinal: See HPI Genitourinary: No symptoms reported Female Genitourinary: Post menopausal Musculoskeletal: No symptoms reported Skin: No symptoms reported Neurological/Psychological: See HPI Physical Exam - Vital signs Vitals: Temp Pulse Resp BP Pulse Ox 97.8 F 69 22 H 152/65 H 99 07/14/17 18:00 07/14/17 18:00 07/14/17 18:00 07/14/17 18:00 07/14/17 18:00 Interpretation: Hypertensive, Tachypneic. No: Tachycardic, Febrile - General General appearance: Appears well, Alert, Anxious In distress: None - HEENT Head: Normocephalic Eyes: Normal Conjunctiva: Normal Ears: Normal Nasal: Normal Mouth/Lips: Normal Mucous membranes: Normal Pharynx: Erythema - MILD Neck: Normal - Respiratory Respiratory status: No respiratory distress Chest status: Nontender Breath sounds: Normal - Cardiovascular Rhythm: Regular Heart sounds: Normal auscultation Murmur: No - Abdominal Inspection: Normal Distension: No distension Bowel sounds: Normal - Back Back: Normal - Extremities General upper extremity: Normal inspection General lower extremity: Normal inspection. No: Tender, Edema - Neurological Neuro grossly intact: Yes Cognition: Normal Orientation: AAOx4 - Psychological Associated symptoms: Normal affect, Normal mood - Skin Skin Temperature: Warm Skin Moisture: Dry Skin Color: Normal Skin Turgor: Elastic Course - Vital Signs Vital signs: Temp Pulse Resp BP Pulse Ox 97.5 F 69 23 H 164/67 H 100 07/14/17 20:57 07/14/17 18:00 07/14/17 21:32 07/14/17 21:32 07/14/17 21:32 - Laboratory Result Diagrams: 07/14/17 19:25 07/14/17 19:25 Laboratory results interpreted by me: 07/14/17 19:25 Creatine Kinase 353 H Discharge - Discharge Clinical Impression: Viral upper respiratory infection Headache Qualifiers: Headache type: unspecified Headache chronicity pattern: acute headache Intractability: not intractable Qualified Code(s): R51 - Headache Hypertension Qualifiers: Hypertension type: essential hypertension Qualified Code(s): I10 - Essential ( primary) hypertension Condition: Stable Disposition: HOME, SELF-CARE Instructions: Viral Syndrome ([facility]), Upper Respiratory Illness ([facility]) Additional Instructions: REST, DRINK PLENTY OF FLUIDS. CONTINUE YOUR USUAL MEDICATIONS DIRECTED BY DR. TREJO. ALSO, TAKE MUCINEX (GUIAFENESIN) TO HELP LOOSEN MUCUS CONGESTION. FOLLOW UP WITH DR. TREJO, CALL OFFICE IN A.M. FOR APPT. Referrals: PENNY TREJO MD [Primary Care Provider] - Follow up in 3-5 days
[2017-07-14 21:24] LABS: A TYPE INFLUENZA AG NEGATIVE (NEGATIVE); B INFLUENZA AG NEGATIVE (NEGATIVE)
[2017-07-14 23:19] VITALS: BP 158/87
--- NOTE | 2017-07-15 09:30 | EKG REPORT ---
SEVERITY:- ABNORMAL ECG - SINUS RHYTHM SUPRAVENTRICULAR BIGEMINY NONSPECIFIC T ABNORMALITIES, LATERAL LEADS : Confirmed by: Alicia Jones 15-Jul-2017 09:29:04
== END 2017-07-14 23:20 | disposition home or self-care (01) ==
LOC: ER 17:39
DX: J06.9 Acute upper respiratory infection, unspecified (principal); B97.89 Other viral agents as the cause of diseases classified elsewhere; I10 Essential (primary) hypertension; R07.9 Chest pain, unspecified; R51 Headache; R50.9 Fever, unspecified; R11.0 Nausea; R05 Cough; M79.1 Myalgia; R06.82 Tachypnea, not elsewhere classified; I25.2 Old myocardial infarction; Z88.0 Allergy status to penicillin; Z88.2 Allergy status to sulfonamides; Z87.891 Personal history of nicotine dependence; Z86.14 Personal history of Methicillin resistant Staphylococcus aureus infection
CPT/HCPCS: 36415; 71045; 80053; 82550; 82553; 83880; 84484; 85025; 85379; 87070; 87804; 87880; 93005; 93010; 99285

== ENCOUNTER 2017-11-10 12:11 | Emergency (ER) | payer MEDICARE, OTHER ==
--- NOTE | 2017-11-10 13:18 | ER Document Report ---
ED Medical Screen (RME) - General Chief Complaint: Dizziness Stated Complaint: DIZZY, HEADACHE, NECK PAIN Time Seen by Provider: 11/10/17 13:17 Notes: Patient presents complaining of multiple areas of pain. She states she has bilateral headache that goes into her neck. She also has some left shoulder and arm pain. She also has some chest pain. And she states she has had diarrhea and nausea. TRAVEL OUTSIDE OF THE [place] IN LAST 30 DAYS: No - Related Data Allergies/Adverse Reactions: Penicillins Allergy (Verified 11/10/17 12:15) HIVES SWELLING Sulfa (Sulfonamide Antibiotics) Allergy (Verified 11/10/17 12:15) HIVES SWELLING Past Medical History - Social History Chew tobacco use (# tins/day): No Frequency of alcohol use: None Drug Abuse: None - Past Medical History Cardiac Medical History: Reports: Hx Heart Attack, Hx Hypercholesterolemia, Hx Hypertension Denies: Hx Atrial Fibrillation, Hx Congestive Heart Failure, Hx DVT, Hx Pulmonary Embolism Pulmonary Medical History: Denies: Hx Asthma, Hx COPD - DENIES, Hx Sleep Apnea Neurological Medical History: 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 Denies : Hx Seizures Endocrine Medical History: Denies: Hx Diabetes Mellitus Type 1, Hx Diabetes Mellitus Type 2, Hx Hyperthyroidism, Hx Hypothyroidism Renal/ Medical History: Denies: Hx Peritoneal Dialysis GI Medical History: Denies: Hx Cirrhosis, Hx Gastroesophageal Reflux Disease, Hx Hepatitis Musculoskeltal Medical History: Reports Hx Arthritis Psychiatric Medical History: Denies: Hx Depression Infectious Medical History: Denies: Hx C-Diff, Hx Hepatitis, Hx MRSA Past Surgical History: Reports: Hx Cholecystectomy, Hx Orthopedic Surgery - shoulder - Immunizations Hx Diphtheria, Pertussis, Tetanus Vaccination: Yes Physical Exam - Vital signs Vitals: Temp Pulse Resp BP Pulse Ox 97.9 F 73 16 165/65 H 96 11/10/17 12:34 11/10/17 12:34 11/10/17 12:34 11/10/17 12:34 11/10/17 12:34 Course - Vital Signs Vital signs: Temp Pulse Resp BP Pulse Ox 97.9 F 73 16 165/65 H 96 11/10/17 12:34 11/10/17 12:34 11/10/17 12:34 11/10/17 12:34 11/10/17 12:34
[2017-11-10 14:10] LABS: ABSOLUTE EOSINOPHILS # (AUTO) 0.3 10^3/uL (0.0-0.6); ABSOLUTE LYMPHOCYTES (AUTO) 1.5 10^3/uL (0.5-4.7); ABSOLUTE MONOCYTES (AUTO) 0.6 10^3/uL (0.1-1.4); ABSOLUTE NEUT (AUTO) 4.8 10^3/uL (1.7-8.2); BASOPHILS % (AUTO) 0.5 % (0-2); EOSINOPHILS % (AUTO) 3.8 % (0-6); HEMATOCRIT 40.9 % (36.0-47.0); HEMOGLOBIN 13.5 g/dL (12.0-15.5); LYMPHOCYTES % (AUTO) 20.7 % (13-45); MEAN CORPUSCULAR HEMOGLOBIN 27.5 pg (27.0-33.4); MEAN CORPUSCULAR VOLUME 83 fl (80-97); MONOCYTES % (AUTO) 8.2 % (3-13); PLATELET COUNT 282 10^3/uL (150-450); RED BLOOD COUNT 4.92 10^6/uL (3.72-5.28); RED CELL DISTRIBUTION WIDTH 13.3 % (11.5-14.0); SEGMENTED NEUTROPHILS % (AUTO) 66.8 % (42-78); TOTAL CELLS COUNTED % (AUTO) 100 %; WHITE BLOOD COUNT 7.2 10^3/uL (4.0-10.5)
[2017-11-10 14:11] LABS: APPEARANCE,URINE CLEAR; BILIRUBIN,URINE NEGATIVE (NEGATIVE); COLOR,URINE YELLOW; GLUCOSE, URINE NEGATIVE (NEGATIVE); KETONES,URINE NEGATIVE (NEGATIVE); LEUKOCYTE ESTERASE,URINE NEGATIVE (NEGATIVE); NITRITE,URINE NEGATIVE (NEGATIVE); PROTEIN,URINE NEGATIVE (NEGATIVE); URINE SPECIFIC GRAVITY 1.006; UROBILINOGEN,URINE NEGATIVE mg/dL (<2.0)
[2017-11-10 14:29] LABS: ALANINE AMINOTRANSFERASE 38 U/L (9-52); ALBUMIN 4.4 g/dL (3.5-5.0); ALKALINE PHOSPHATASE 72 U/L (38-126); ANION GAP 11 (5-19); ASPARTATE AMINO TRANSFERASE 42 U/L (14-36); BILIRUBIN,DIRECT 0.3 mg/dL (0.0-0.4); BILIRUBIN,TOTAL 0.8 mg/dL (0.2-1.3); BLOOD UREA NITROGEN 12 mg/dL (7-20); CALCIUM 10.1 mg/dL (8.4-10.2); CARBON DIOXIDE 27 mmol/L (22-30); CHLORIDE 96 mmol/L (98-107); GLUCOSE 97 mg/dL (75-110); POTASSIUM 4.5 mmol/L (3.6-5.0); SODIUM 133.6 mmol/L (137-145); TOTAL PROTEIN 7.2 g/dL (6.3-8.2)
--- NOTE | 2017-11-10 14:32 | RADIOLOGY REPORT (SQ) ---
EXAM DESCRIPTION: CT HEAD WITHOUT COMPLETED DATE/TIME: 11/10/2017 2:07 pm REASON FOR STUDY: pugh COMPARISON: [address] brain exams since 05/19/2015, most recently 03/05/2017 TECHNIQUE: Axial images acquired through the brain without intravenous contrast. Images reviewed wi th bone, brain and subdural windows. Additional sagittal and coronal reconstructions were generated. Images stored on PACS. All CT scanners at this facility use dose modulation, iterative reconstruction, and/or weight based d osing when appropriate to reduce radiation dose to as low as reasonably achievable (ALARA). [facility]: Dose Right [facility]: CareDose [facility]: Dose Right [facility]: Teradose 4D [facility]: Vettery RADIATION DOSE: CT Rad equipment meets quality standard of care and radiation dose reduction techniq ues were employed. CTDIvol: 53.2 mGy. DLP: 1044 mGy-cm. mGy. LIMITATIONS: None. FINDINGS: VENTRICLES: Normal size and contour. CEREBRUM: Old right MCA distribution infarct in the right posterior temporal lobe and parietal lobe. No CT evidence of acute large territory ischemic change, acute intracranial hemorrhage, mass effect, or midline shift. CEREBELLUM: No masses. No hemorrhage. No alteration of density. No evidence for acute infarction. EXTRAAXIAL SPACES: No fluid collections. No masses. ORBITS AND GLOBE: No intra- or extraconal masses. Normal contour of globe without masses. CALVARIUM: No fracture. PARANASAL SINUSES: No fluid or mucosal thickening. SOFT TISSUES: No mass or hematoma. OTHER: No other significant finding. IMPRESSION: Chronic appearing right MCA distribution infarct. No acute findings. EVIDENCE OF ACUTE STROKE: NO. COMMENT: Quality ID # [id number]: Final reports with documentation of one or more dose reduction techniques (e.g., Automated exposure control, adjustment of the mA and/or kV according to patient size, use of iterative reconstruction technique) TECHNICAL DOCUMENTATION: JOB ID: [id number] [employer]- All Rights Reserved Reading location - IP/workstation name: [email or web address]
[2017-11-10] MEDS ORDERED: MECLIZINE HCL 25 MG TABLET PO ONE (14:46)
[2017-11-10 16:34] VITALS: BP 148/84
--- NOTE | 2017-11-10 22:00 | ER Document Report ---
ED General - General Chief Complaint: Dizziness Stated Complaint: DIZZY, HEADACHE, NECK PAIN Time Seen by Provider: 11/10/17 13:17 TRAVEL OUTSIDE OF THE [place] IN LAST 30 DAYS: No - HPI Patient complains to provider of: Dizziness headache Notes: Patient coming in for evaluation of headache and dizziness. Patient states ongoing for greater than 3 weeks. Patient states have been seen at [facility] by a specialist that "blew air into my ears" however was never given a specific diagnosis. Patient states that she is also been evaluated by her PCP patient states worse over the last 3 days. Patient denies any relief with any medications that she is taken at home. Otherwise patient is resting comfortably upon my evaluation denies fevers chills nausea vomiting diarrhea denies any abdominal pain chest pain. Denies any trauma. - Related Data Allergies/Adverse Reactions: Penicillins Allergy (Verified 11/10/17 12:15) HIVES SWELLING Sulfa (Sulfonamide Antibiotics) Allergy (Verified 11/10/17 12:15) HIVES SWELLING Past Medical History - Social History Smoking Status: Former Smoker Chew tobacco use (# tins/day): No Frequency of alcohol use: None Drug Abuse: None Family History: Hypertension, Malignancy Patient has suicidal ideation: No Patient has homicidal ideation: No - Past Medical History Cardiac Medical History: Reports: Hx Heart Attack, Hx Hypercholesterolemia, Hx Hypertension Denies: Hx Atrial Fibrillation, Hx Congestive Heart Failure, Hx DVT, Hx Pulmonary Embolism Pulmonary Medical History: Denies: Hx Asthma, Hx COPD - DENIES, Hx Sleep Apnea Neurological Medical History: 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 Denies : Hx Seizures Endocrine Medical History: Denies: Hx Diabetes Mellitus Type 1, Hx Diabetes Mellitus Type 2, Hx Hyperthyroidism, Hx Hypothyroidism Renal/ Medical History: Denies: Hx Peritoneal Dialysis GI Medical History: Denies: Hx Cirrhosis, Hx Gastroesophageal Reflux Disease, Hx Hepatitis Musculoskeltal Medical History: Reports Hx Arthritis Psychiatric Medical History: Denies: Hx Depression Infectious Medical History: Denies: Hx C-Diff, Hx Hepatitis, Hx MRSA Past Surgical History: Reports: Hx Cholecystectomy, Hx Orthopedic Surgery - shoulder - Immunizations Hx Diphtheria, Pertussis, Tetanus Vaccination: Yes Hx Pneumococcal Vaccination: 04/13/11 Review of Systems - Review of Systems Constitutional: No symptoms reported EENT: Other - Dizziness headache Cardiovascular: No symptoms reported Respiratory: No symptoms reported Gastrointestinal: No symptoms reported Genitourinary: No symptoms reported Female Genitourinary: No symptoms reported Musculoskeletal: No symptoms reported Skin: No symptoms reported Hematologic/Lymphatic: No symptoms reported Neurological/Psychological: No symptoms reported Physical Exam - Vital signs Vitals: Temp Pulse Resp BP Pulse Ox 97.9 F 73 16 165/65 H 96 11/10/17 12:34 11/10/17 12:34 11/10/17 12:34 11/10/17 12:34 11/10/17 12:34 Interpretation: Normal - General General appearance: Appears well, Alert - HEENT Head: Normocephalic, Atraumatic Eyes: Normal Pupils: PERRL - Respiratory Respiratory status: No respiratory distress Chest status: Nontender Breath sounds: Normal Chest palpation: Normal - Cardiovascular Rhythm: Regular Heart sounds: Normal auscultation Murmur: No - Abdominal Inspection: Normal Distension: No distension Bowel sounds: Normal Tenderness: Nontender Organomegaly: No organomegaly - Back Back: Normal, Nontender - Extremities General upper extremity: Normal inspection, Nontender, Normal color, Normal ROM , Normal temperature General lower extremity: Normal inspection, Nontender, Normal color, Normal ROM , Normal temperature. No: Clinton's sign - Neurological Neuro grossly intact: Yes Cognition: Normal Orientation: AAOx4 [place] Coma Scale Eye Opening: Spontaneous [place] Coma Scale Verbal: Oriented [place] Coma Scale Motor: Obeys Commands [place] Coma Scale Total: 15 Speech: Normal Cranial nerves: Normal Cerebellar coordination: Normal Motor strength normal: LUE, RUE, LLE, RLE Sensory: Normal Knee - Reflex grade: 2 = Normal - Psychological Associated symptoms: Normal affect, Normal mood - Skin Skin Temperature: Warm Skin Moisture: Dry Skin Color: Normal Course - Re-evaluation Re-evalutation: 11/10/17 21:57 Patient coming in for chronic headache and dizziness. Laboratory studies and CAT scan of the head were performed did not show any critical pathology. Explained to patient that she will need to follow-up with ENT and neurology. Patient states understanding states that she was tired of waiting in the ER and therefore is requesting to leave. Patient witnessed getting from chair to bed without difficulty. Patient will be discharged on follow-up PCP. Explained to patient that I will give her a trial of meclizine to aid in her dizziness to take Tylenol Motrin for her headache. - Vital Signs Vital signs: Temp Pulse Resp BP Pulse Ox 98.6 F 77 16 148/84 H 94 11/10/17 16:34 11/10/17 16:27 11/10/17 16:27 11/10/17 16:27 11/10/17 16:27 - Laboratory Result Diagrams: 11/10/17 13:49 11/10/17 13:49 Laboratory results interpreted by me: 11/10/17 11/10/17 13:49 13:49 Sodium 133.6 L Chloride 96 L AST 42 H Urine Blood SMALL H Discharge - Discharge Clinical Impression: Dizziness Headache Qualifiers: Headache type: unspecified Headache chronicity pattern: unspecified pattern Intractability: not intractable Qualified Code(s): R51 - Headache Condition: Good Disposition: HOME, SELF-CARE Instructions: Dizziness ([facility]), Headache ([facility]), Meclizine ([facility]) Additional Instructions: Your head CT laboratory studies today do not show any acute pathology for your symptoms. We will start you on a medication called Antivert to see if this helps out with your dizziness. Would recommend taking Tylenol Motrin for your headache. Also recommend following up with your primary care physician for further evaluation of her symptoms. I do believe that she will need to follow- up with a ear nose and throat doctor or neurologist for further evaluation of your symptoms. Prescriptions: Meclizine HCl [Antivert 25 mg Tablet] 25 mg PO TID PRN #21 tablet PRN Reason: Referrals: PENNY TREJO MD [Primary Care Provider] - Follow up in 3-5 days
--- NOTE | 2017-11-10 22:26 | EKG REPORT ---
SEVERITY:- ABNORMAL ECG - SINUS RHYTHM ATRIAL PREMATURE COMPLEX BORDERLINE LEFT AXIS DEVIATION CONSIDER ANTERIOR INFARCT NONSPECIFIC T ABNORMALITIES, LATERAL LEADS : Confirmed by: Alicia Jones 10-Nov-2017 22:25:28
== END 2017-11-10 16:36 | disposition home or self-care (01) ==
LOC: ER 12:11
DX: R42 Dizziness and giddiness (principal); R51 Headache; M54.2 Cervicalgia; I10 Essential (primary) hypertension; E78.00 Pure hypercholesterolemia, unspecified; I25.2 Old myocardial infarction; Z88.0 Allergy status to penicillin; Z88.2 Allergy status to sulfonamides; Z86.14 Personal history of Methicillin resistant Staphylococcus aureus infection; Z90.49 Acquired absence of other specified parts of digestive tract
CPT/HCPCS: 93005; 99284; 36415; 85025; 80053; 81001; 84484; 70450; 93010; A9270

== ENCOUNTER → 2018-04-13 | Outpatient (CLI) | payer MEDICARE ==
--- NOTE | 2018-04-13 11:04 | WOMENS IMAGING REPORT ---
EXAM DESCRIPTION: BONE DENSITY HIP/SPINE COMPLETED DATE/TIME: 04/13/2018 10:38 am REASON FOR STUDY: BONE DENSITY M81.8 M81.8 OTHER OSTEOPOROSIS WITHOUT CURRENT PATHOLOGICAL FRACTU COMPARISON: 2011 TECHNIQUE: Dual-Energy X-ray Absorptiometry (DEXA) of the AP Spine and Hip. LIMITATIONS: None. FINDINGS: LUMBAR SPINE: The bone mineral density (BMD) measured from L1-L4 in the AP projection correlates with a T-score of -1.2, previously -1.4, which is osteopenia as defined by the World Health Organization. HIP: The bone mineral density (BMD) measured in the left hip correlates with a T-score of -2.5, previously -2.1, which is osteoporosis as defined by the World Health Organization. IMPRESSION: 1. LUMBAR SPINE: OSTEOPENIA. 2. HIP: OSTEOPOROSIS. COMMENT: The World Health Organization defines low BMD as follows: T-score: Normal: Greater than -1.0 Osteopenia: Between -1.0 and -2.5 Osteoporosis: Less than -2.5 without fractures Established osteoporosis: Less than -2.5 with fractures In general, you may wish to consider: Diagnosis Treatment Follow-up DEXA Normal BMD Prevention 2-3 years Osteopenia Prevention/Therapy 1-2 years Osteoporosis Therapy Yearly TECHNICAL DOCUMENTATION: JOB ID: [id number] [email or web address]- All Rights Reserved Reading location - IP/workstation name: [email or web address]
== END ==
LOC: WI 09:56
PROVIDERS: ATTEND Internal Medicine
DX: M81.8 Other osteoporosis without current pathological fracture (principal)
CPT/HCPCS: 77080

== ENCOUNTER 2018-06-28 15:14 | Emergency (ER) | payer MEDICARE ==
--- NOTE | 2018-06-28 16:19 | ER Document Report ---
ED Medical Screen (RME) - General Chief Complaint: Blood Pressure Problem Stated Complaint: BLOOD PRESSURE ISSUE, HEADACHE, DIZZY Time Seen by Provider: 06/28/18 16:12 Mode of Arrival: Ambulatory Information source: Patient, [facility] Records Notes: 83-year-old female with coronary artery disease, hyperlipidemia, hypertension, COPD, previous CVA in October 2017 presents with concern for elevated blood pressure readings at home, headache, shortness of breath and weakness. Patient states that she takes labetalol and clonidine for her blood pressure. She states that she wakes most days with headaches which is resolved after taking her blood pressure medication. She states the headache is worse today. Shortness of breath also started today. Patient denies any chest pain. I have greeted and performed a rapid initial assessment of this patient. A comprehensive ED assessment and evaluation of the patient, analysis of test results and completion of medical decision making process we will be contacted by additional ED providers. PHYSICAL EXAMINATION: Vital signs reviewed-hypertensive, afebrile GENERAL: Well-appearing, well-nourished and in no acute distress. LUNGS: No respiratory distress Musculoskeletal: Normal range of motion NEUROLOGICAL: Normal speech, normal gait. PSYCH: Normal mood, normal affect. SKIN: Warm, Dry, normal turgor, no rashes or lesions noted. TRAVEL OUTSIDE OF THE [place] IN LAST 30 DAYS: No - HPI Onset: Just prior to arrival Onset/Duration: Sudden Quality of pain: Throbbing Severity: Mild Associated Symptoms: Dizzy/lightheaded, Headache, Shortness of breath. denies: Chest pain Exacerbated by: Denies Relieved by: Denies Similar symptoms previously: Yes Recently seen / treated by doctor: Yes - Related Data Smoking: Non-smoker Frequency of alcohol use: None Drug Abuse: None Allergies/Adverse Reactions: Penicillins Allergy (Verified 11/10/17 12:15) HIVES SWELLING Sulfa (Sulfonamide Antibiotics) Allergy (Verified 11/10/17 12:15) HIVES SWELLING Past Medical History - Social History Frequency of alcohol use: Rare Drug Abuse: None - Past Medical History Cardiac Medical History: Reports: Hx Heart Attack, Hx Hypercholesterolemia, Hx Hypertension Denies: Hx Atrial Fibrillation, Hx Congestive Heart Failure, Hx DVT, Hx Pulmonary Embolism Pulmonary Medical History: Denies: Hx Asthma, Hx COPD - DENIES, Hx Sleep Apnea Neurological Medical History: 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 Denies : Hx Seizures Endocrine Medical History: Denies: Hx Diabetes Mellitus Type 1, Hx Diabetes Mellitus Type 2, Hx Hyperthyroidism, Hx Hypothyroidism Renal/ Medical History: Denies: Hx Peritoneal Dialysis GI Medical History: Denies: Hx Cirrhosis, Hx Gastroesophageal Reflux Disease, Hx Hepatitis Musculoskeltal Medical History: Reports Hx Arthritis Psychiatric Medical History: Denies: Hx Depression Infectious Medical History: Denies: Hx C-Diff, Hx Hepatitis, Hx MRSA Past Surgical History: Reports: Hx Cholecystectomy, Hx Orthopedic Surgery - shoulder - Immunizations Hx Diphtheria, Pertussis, Tetanus Vaccination: Yes Physical Exam - Vital signs Vitals: Temp Pulse Resp BP Pulse Ox 97.7 F 56 L 14 162/57 H 94 06/28/18 16:00 06/28/18 16:00 06/28/18 16:00 06/28/18 16:00 06/28/18 16:00 Course - Vital Signs Vital signs: Temp Pulse Resp BP Pulse Ox 97.7 F 56 L 14 162/57 H 94 06/28/18 16:00 06/28/18 16:00 06/28/18 16:00 06/28/18 16:00 06/28/18 16:00
[2018-06-28 17:28] LABS: ABSOLUTE EOSINOPHILS # (AUTO) 0.2 10^3/uL (0.0-0.6); ABSOLUTE LYMPHOCYTES (AUTO) 1.9 10^3/uL (0.5-4.7); ABSOLUTE MONOCYTES (AUTO) 0.4 10^3/uL (0.1-1.4); ABSOLUTE NEUT (AUTO) 2.9 10^3/uL (1.7-8.2); BASOPHILS % (AUTO) 0.7 % (0-2); EOSINOPHILS % (AUTO) 3.6 % (0-6); HEMATOCRIT 38.4 % (36.0-47.0); HEMOGLOBIN 12.8 g/dL (12.0-15.5); LYMPHOCYTES % (AUTO) 34.2 % (13-45); MEAN CORPUSCULAR HEMOGLOBIN 29.3 pg (27.0-33.4); MEAN CORPUSCULAR HGB CONC 33.4 g/dL (32.0-36.0); MEAN CORPUSCULAR VOLUME 88 fl (80-97); MONOCYTES % (AUTO) 8.2 % (3-13); PLATELET COUNT 249 10^3/uL (150-450); RED BLOOD COUNT 4.39 10^6/uL (3.72-5.28); SEGMENTED NEUTROPHILS % (AUTO) 53.3 % (42-78); TOTAL CELLS COUNTED % (AUTO) 100 %; WHITE BLOOD COUNT 5.5 10^3/uL (4.0-10.5)
[2018-06-28 17:47] LABS: ALANINE AMINOTRANSFERASE 19 U/L (9-52); ALBUMIN 4.3 g/dL (3.5-5.0); ALKALINE PHOSPHATASE 61 U/L (38-126); ANION GAP 8 (5-19); ASPARTATE AMINO TRANSFERASE 42 U/L (14-36); BILIRUBIN,DIRECT 0.3 mg/dL (0.0-0.4); BILIRUBIN,TOTAL 0.4 mg/dL (0.2-1.3); BLOOD UREA NITROGEN 16 mg/dL (7-20); CALCIUM 9.3 mg/dL (8.4-10.2); CARBON DIOXIDE 25 mmol/L (22-30); CHLORIDE 103 mmol/L (98-107); GLUCOSE 102 mg/dL (75-110); POTASSIUM 4.4 mmol/L (3.6-5.0); SODIUM 135.8 mmol/L (137-145); TOTAL PROTEIN 7.2 g/dL (6.3-8.2)
--- NOTE | 2018-06-28 18:51 | RADIOLOGY REPORT (SQ) ---
EXAM DESCRIPTION: CHEST 2 VIEWS COMPLETED DATE/TIME: 06/28/2018 6:35 pm REASON FOR STUDY: sob COMPARISON: 07/14/2017 NUMBER OF VIEWS: Two view. TECHNIQUE: Frontal and lateral radiographic views of the chest acquired. LIMITATIONS: None. FINDINGS: LUNGS AND PLEURA: No opacities, masses or pneumothorax. No pleural effusion. Attenuated bl ood vessels and flattened robb-diaphragms. MEDIASTINUM AND HILAR STRUCTURES: No masses. No contour abnormalities. HEART AND VASCULAR STRUCTURES: Heart normal in size and contour. No evidence for failure. BONES: No acute findings. HARDWARE: None in the chest. OTHER: No other significant finding. IMPRESSION: COPD. NO ACUTE RADIOGRAPHIC FINDING IN THE CHEST. TECHNICAL DOCUMENTATION: JOB ID: [id number] [employer]- All Rights Reserved Reading location - IP/workstation name: [email or web address]
[2018-06-28] MEDS ORDERED: PROCHLORPERAZINE EDISYLATE INJ 10 MG/2 ML VIAL IV ONE (20:09)
--- NOTE | 2018-06-28 20:11 | ER Document Report ---
ED General - General Chief Complaint: Blood Pressure Problem Stated Complaint: BLOOD PRESSURE ISSUE, HEADACHE, DIZZY Time Seen by Provider: 06/28/18 16:12 Mode of Arrival: Ambulatory TRAVEL OUTSIDE OF THE [place] IN LAST 30 DAYS: No - HPI Patient complains to provider of: Blood pressure issues headache Notes: Patient coming in for the above-stated complaints was seen in the triage area by the provider. Providers note is provided below 83-year-old female with coronary artery disease, hyperlipidemia, hypertension, COPD, previous CVA in October 2017 presents with concern for elevated blood pressure readings at home, headache, shortness of breath and weakness. Patient states that she takes labetalol and clonidine for her blood pressure. She states that she wakes most days with headaches which is resolved after taking her blood pressure medication. She states the headache is worse today. Shortness of breath also started today. Patient denies any chest pain. Upon my evaluation patient is returning from the bathroom with a steady gait no signs of any instability patient is complaining of headaches patient states she does have intermittent headaches but still wakes up in the morning with frontal headaches. Patient states she does associate this with elevated blood pressure. Patient states she did have an increase in her headache today took her blood pressure and continue to elevate even though she did take a clonidine patient states she did not take the rest of her blood pressure medication for this afternoon and decided to come to the ER for further evaluation. Patient states she does not take any medication for headache at home. Patient states upon her last ER visit for headache she was given a medication to the IV that started with this is C and ended with a Zine Patient otherwise is in no obvious distress. Patient blood pressure upon my evaluation has a systolic of 130. Patient looks to be resting currently denies any fever chills nausea vomiting diarrhea. Denies any trauma. - Related Data Allergies/Adverse Reactions: Penicillins Allergy (Verified 11/10/17 12:15) HIVES SWELLING Sulfa (Sulfonamide Antibiotics) Allergy (Verified 11/10/17 12:15) HIVES SWELLING Past Medical History - General Information source: Patient, [facility] Records - Social History Smoking Status: Never Smoker Frequency of alcohol use: Rare Drug Abuse: None Family History: Hypertension, Malignancy Patient has suicidal ideation: No Patient has homicidal ideation: No - Past Medical History Cardiac Medical History: Reports: Hx Heart Attack, Hx Hypercholesterolemia, Hx Hypertension Denies: Hx Atrial Fibrillation, Hx Congestive Heart Failure, Hx DVT, Hx Pulmonary Embolism Pulmonary Medical History: Denies: Hx Asthma, Hx COPD - DENIES, Hx Sleep Apnea Neurological Medical History: 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 Denies : Hx Seizures Endocrine Medical History: Denies: Hx Diabetes Mellitus Type 1, Hx Diabetes Mellitus Type 2, Hx Hyperthyroidism, Hx Hypothyroidism Renal/ Medical History: Denies: Hx Peritoneal Dialysis GI Medical History: Denies: Hx Cirrhosis, Hx Gastroesophageal Reflux Disease, Hx Hepatitis Musculoskeletal Medical History: Reports Hx Arthritis Psychiatric Medical History: Denies: Hx Depression Infectious Medical History: Denies: Hx C-Diff, Hx Hepatitis, Hx MRSA Past Surgical History: Reports: Hx Cholecystectomy, Hx Orthopedic Surgery - shoulder - Immunizations Hx Diphtheria, Pertussis, Tetanus Vaccination: Yes Hx Pneumococcal Vaccination: 04/13/11 Review of Systems - Review of Systems Constitutional: Other - headache bp concerns EENT: No symptoms reported Cardiovascular: No symptoms reported Respiratory: No symptoms reported Gastrointestinal: No symptoms reported Genitourinary: No symptoms reported Female Genitourinary: No symptoms reported Musculoskeletal: No symptoms reported Skin: No symptoms reported Hematologic/Lymphatic: No symptoms reported Neurological/Psychological: No symptoms reported Physical Exam - Vital signs Vitals: Temp Pulse Resp BP Pulse Ox 97.7 F 56 L 14 162/57 H 94 06/28/18 16:00 06/28/18 16:00 06/28/18 16:00 06/28/18 16:00 06/28/18 16:00 Interpretation: Normal - General General appearance: Appears well, Alert - HEENT Head: Normocephalic, Atraumatic Eyes: Normal Pupils: PERRL - Respiratory Respiratory status: No respiratory distress Chest status: Nontender Breath sounds: Normal Chest palpation: Normal - Cardiovascular Rhythm: Regular Heart sounds: Normal auscultation Murmur: No - Abdominal Inspection: Normal Distension: No distension Bowel sounds: Normal Tenderness: Nontender Organomegaly: No organomegaly - Back Back: Normal, Nontender - Extremities General upper extremity: Normal inspection, Nontender, Normal color, Normal ROM , Normal temperature General lower extremity: Normal inspection, Nontender, Normal color, Normal ROM , Normal temperature, Normal weight bearing. No: Clinton's sign - Neurological Neuro grossly intact: Yes Cognition: Normal Orientation: AAOx4 [place] Coma Scale Eye Opening: Spontaneous [place] Coma Scale Verbal: Oriented [place] Coma Scale Motor: Obeys Commands [place] Coma Scale Total: 15 Speech: Normal Motor strength normal: LUE, RUE, LLE, RLE Sensory: Normal - Psychological Associated symptoms: Normal affect, Normal mood - Skin Skin Temperature: Warm Skin Moisture: Dry Skin Color: Normal Course - Re-evaluation Re-evalutation: 06/28/18 23:07 After findings did not show any critical pathology. Long discussion with the patient I recommend she continue to take her blood pressure medications as her primary care physician has previously prescribed her. We will give the patient a dose of Compazine here in the ER for her headache. Patient also be sent home with a prescription for Compazine. Patient states understanding of the instructions and will be discharged home. 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 The patient is neurologically intact. Given the extremely low risk of these diagnoses further testing and evaluation for these possibilities does not appear to be indicated at this time. The patient has been instructed to return if the symptoms worsen or change in any way.. - Vital Signs Vital signs: Temp Pulse Resp BP Pulse Ox 98.7 F 56 L 17 164/74 H 96 06/28/18 21:01 06/28/18 16:00 06/28/18 21:01 06/28/18 21:01 06/28/18 21:01 - Laboratory Result Diagrams: 06/28/18 17:00 06/28/18 17:00 Laboratory results interpreted by me: 06/28/18 17:00 Sodium 135.8 L AST 42 H Discharge - Discharge Clinical Impression: Headache Qualifiers: Headache type: unspecified Headache chronicity pattern: unspecified pattern Intractability: not intractable Qualified Code(s): R51 - Headache Hypertension Qualifiers: Hypertension type: unspecified Qualified Code(s): I10 - Essential (primary) hypertension Condition: Good Disposition: HOME, SELF-CARE Instructions: Intravenous Compazine for Headaches ([facility]), Headache ([facility]), High Blood Pressure ([facility]) Additional Instructions: Your evaluation today does not show any critical pathology. I recommend to continue to take your blood pressure medication as you are physician has. The prescribed you. You may take the Compazine as prescribed for headaches that she may have also recommend taking Tylenol for your headaches follow-up with your doctor on Friday. Prescriptions: Prochlorperazine Maleate [Compazine] 5 mg PO Q6 #10 tablet Forms: Return to Work
[2018-06-28 21:07] VITALS: BP 164/74
--- NOTE | 2018-06-29 00:47 | EKG REPORT ---
SEVERITY:- ABNORMAL ECG - SINUS RHYTHM SUPRAVENTRICULAR BIGEMINY BORDERLINE T ABNORMALITIES, ANTERIOR LEADS : Confirmed by: Katarina Rodríguez MD 29-Jun-2018 00:47:18
== END 2018-06-28 21:07 | disposition home or self-care (01) ==
LOC: ER 15:14
DX: R51 Headache (principal); I10 Essential (primary) hypertension; R42 Dizziness and giddiness; E78.5 Hyperlipidemia, unspecified; J44.9 Chronic obstructive pulmonary disease, unspecified; Z86.73 Personal history of transient ischemic attack (TIA), and cerebral infarction without residual deficits; Z90.49 Acquired absence of other specified parts of digestive tract; I25.2 Old myocardial infarction; E78.00 Pure hypercholesterolemia, unspecified
CPT/HCPCS: 93005; 99284; 96374; 36415; 85025; 80053; 84484; 71046; 93010; J0780

== ENCOUNTER → 2019-09-28 | Outpatient (CLI) | payer MEDICARE, OTHER ==
--- NOTE | 2019-09-28 17:14 | RADIOLOGY REPORT (SQ) ---
EXAM DESCRIPTION: VENOUS UNILATERAL LOWER COMPLETED DATE/TIME: 09/28/2019 5:01 pm REASON FOR STUDY: LLE SWELLING I82.402 ACUTE EMBOLISM AND THOMBOS UNSP DEEP VEINS OF L LOW COMPARISON: None. TECHNIQUE: Dynamic and static yi scale and color images acquired of the left leg venous system. Se lected spectral images acquired with additional compression and augmentation maneuvers. The contralat eral common femoral vein and saphenofemoral junction were also imaged. Images stored on PACS. LIMITATIONS: None. FINDINGS: COMMON FEMORAL: Normal phasicity, compression and augmentation. No visualized echogenic ma terial on yi scale. No defects on color images. FEMORAL: Normal compression and augmentation. No visualized echogenic material on yi scale. No defe cts on color images. POPLITEAL: Normal compression, augmentation. No visualized echogenic material on yi scale. No defec ts on color images. CALF VESSELS: Normal compression, augmentation. No visualized echogenic material on yi scale. No de fects on color images. GSV and SSV: Normal compression, augmentation. No visualized echogenic material on yi scale. No def ects on color images. ANY DEEP VENOUS INSUFFICIENCY: Not evaluated. ANY EVIDENCE OF POPLITEAL CYST: No. OTHER: No other significant finding. CONTRALATERAL COMMON FEMORAL VEIN AND SAPHENOFEMORAL JUNCTION: Normal phasicity, compression and augmentation. No visualized echogenic material on yi scale. No de fects on color images. IMPRESSION: NO EVIDENCE DVT OR SVT IN THE LEFT LEG. TECHNICAL DOCUMENTATION: JOB ID: [id number] 2010 [employer]- All Rights Reserved Reading location - IP/workstation name: [email or web address]
== END ==
LOC: SP 14:24
PROVIDERS: ATTEND Podiatrist Foot & Ankle Surgery
DX: I82.402 Acute embolism and thrombosis of unspecified deep veins of left lower extremity (principal)
CPT/HCPCS: 93971

== ENCOUNTER 2019-10-30 00:47 | Emergency (ER) | payer MEDICARE ==
--- NOTE | 2019-10-30 01:18 | ER Document Report ---
ED General - General Chief Complaint: High Blood Pressure Stated Complaint: HIGH BLOOD PRESSURE Time Seen by Provider: 10/30/19 01:02 Primary Care Provider: JORGE MAYES DPM [ACTIVE STAFF] - 11/01/19 Notes: Patient is an 84-year-old female that comes emergency department by EMS from home for chief complaint of waking up tonight feeling like she could not catch her breath. She states that she became very anxious, checked her blood pressure and noticed it was high (approximately 165/102), she took sublingual nitroglycerin and this did improve her blood pressure slightly but then she started getting a mild headache and became more anxious. She then called EMS. She denies current headache, she denies chest pain, dizziness, passing out. She does admit to noticing that her legs have started swelling, she denies history of CHF, she denies being on a diuretic. Past medical history includes hypertension, on labetalol and clonidine, CVA, hyperlipidemia, and she is on Plavix. 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 Rodríguez, she states she had a normal echocardiogram as far she knows 2 years ago. TRAVEL OUTSIDE OF THE [place] IN LAST 30 DAYS: No - Related Data Allergies/Adverse Reactions: Penicillins Allergy (Verified 11/10/17 12:15) HIVES SWELLING Sulfa (Sulfonamide Antibiotics) Allergy (Verified 11/10/17 12:15) HIVES SWELLING Past Medical History - General Information source: Patient - Social History Smoking Status: Never Smoker Frequency of alcohol use: None Drug Abuse: None Lives with: Alone Family History: Hypertension, Malignancy - Past Medical History Cardiac Medical History: Reports: Hx Heart Attack, Hx Hypercholesterolemia, Hx Hypertension Denies: Hx Atrial Fibrillation, Hx Congestive Heart Failure, Hx DVT, Hx Pulmonary Embolism Pulmonary Medical History: Denies: Hx Asthma, Hx COPD - DENIES, Hx Sleep Apnea Neurological Medical History: 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 Denies: Hx Seizures Endocrine Medical History: Denies: Hx Diabetes Mellitus Type 1, Hx Diabetes Mellitus Type 2, Hx Hyperthyroidism, Hx Hypothyroidism Renal/ Medical History: Denies: Hx Peritoneal Dialysis GI Medical History: Denies: Hx Cirrhosis, Hx Gastroesophageal Reflux Disease, Hx Hepatitis Musculoskeletal Medical History: Reports Hx Arthritis Psychiatric Medical History: Denies: Hx Depression Infectious Medical History: Denies: Hx C-Diff, Hx Hepatitis, Hx MRSA Past Surgical History: Reports: Hx Cholecystectomy, Hx Orthopedic Surgery - shoulder - Immunizations Hx Diphtheria, Pertussis, Tetanus Vaccination: Yes Hx Pneumococcal Vaccination: 04/13/11 Review of Systems - Review of Systems Constitutional: See HPI EENT: No symptoms reported Cardiovascular: See HPI Respiratory: See HPI Gastrointestinal: No symptoms reported Genitourinary: No symptoms reported Female Genitourinary: No symptoms reported Musculoskeletal: No symptoms reported Skin: No symptoms reported Hematologic/Lymphatic: No symptoms reported Neurological/Psychological: See HPI Physical Exam - Vital signs Vitals: Temp Pulse Resp BP Pulse Ox 98.3 F 57 L 16 173/66 H 92 10/30/19 00:47 10/30/19 00:47 10/30/19 00:47 10/30/19 00:47 10/30/19 00:47 - Notes Notes: GENERAL: Alert, interacts well. No acute distress. HEAD: Normocephalic, atraumatic. EYES: Pupils equal, round, and reactive to light. Extraocular movements intact. ENT: Oral mucosa moist, tongue midline. Oropharynx unremarkable. Airway patent. NECK: Full range of motion. Supple. Trachea midline. No lymphadenopathy. LUNGS: Clear to auscultation bilaterally, no wheezes, rales, or rhonchi. Speaks in full sentences, no labored breathing or tachypnea. Soft rales heard in the lung bases, especially on the right. HEART: Bradycardic, occasional extrasystoles. No murmur. ABDOMEN: Soft, non-tender. Non-distended. Bowel sounds present in all 4 quadrants. GENITOURINARY: Deferred EXTREMITIES: Moves all 4 extremities spontaneously. 1+ pitting edema bilaterally, normal radial and dorsalis pedis pulses bilaterally. No cyanosis. BACK: no cervical, thoracic, lumbar midline tenderness. No saddle anesthesia, normal distal neurovascular exam. Moves all extremities in full range of motion. NEUROLOGICAL: Alert and oriented x3. Normal speech. Cranial nerves II through XII grossly intact except patient is hard of hearing. Strength 5/5 in all extremities. PSYCH: Normal affect, normal mood. SKIN: Warm, dry, normal turgor. No rashes or lesions noted. Course - Re-evaluation Re-evalutation: Patient alert and talkative, she started having headache only after she took nitroglycerin, she has no neurological deficits, no chest pain, she initially woke up and felt short of breath but denies shortness of breath currently. She can ambulate without difficulty. She does have soft rales especially in the base of the right lung but no tachypnea, initial oxygen saturation reading was low, we rechecked this and was normal without intervention. She does have a little bit of lower extremity swelling. Reviewing previous records shows that she used to be on Lasix last summer but is not now. She reports compliance with her medications. Patient's blood pressure is borderline elevated but without neurological deficits, headache, or chest pain I have very low suspicion of acute emergent pathology or endorgan damage. CBC unremarkable, chemistry unremarkable, BNP is not elevated, troponin is not elevated, EKG baseline and the same as prior, chest x-ray unremarkable without vascular congestion. Discussed with patient. Recommended she be placed back on Lasix, otherwise there appears to be an anxiety component, patient states that her heat is not working, she was told it would be over $5000 to fix, she lives alone, she states it is cold in her house and she does not want to come back. She does state that she would like to stay at least until the morning when her son can come and get her, although this is not guaranteed. Patient would not be discharged home if she is living alone without heat, she was provided with p.o. medications for now, she will be a social hold with a social consult in the morning (unless we can get up with her son for her to go home with). Patient states great satisfaction and appreciation. - Vital Signs Vital signs: Temp Pulse Resp BP Pulse Ox 98.3 F 57 L 29 H 138/52 H 95 10/30/19 06:01 10/30/19 00:47 10/30/19 07:01 10/30/19 07:01 10/30/19 07:01 - Laboratory Result Diagrams: 10/30/19 02:00 10/30/19 02:00 Discharge - Discharge Clinical Impression: Elevated blood pressure reading, Bilateral lower extremity edema, Anxiety Condition: Stable Disposition: HOME, SELF-CARE Additional Instructions: Your work-up and evaluation today is reassuring. Because of the swelling on your legs we are starting you back on Lasix along with potassium, you need to be seen in close follow-up with your primary care provider for a recheck and additional management. Call on Friday to set up your close follow-up appointment. Your blood pressure was elevated tonight, the Lasix will help with this, however I still recommend that you record your blood pressures about 2 times a day and then bring this daily log to your primary care for additional management. Return if you worsen including difficulty breathing, chest pain, passing out, s evere headache, vomiting, or any other concerning or worsening symptoms. Prescriptions: Furosemide [Lasix 40 mg Tablet] 40 mg PO QAM #14 tablet Potassium Chloride 10 meq PO DAILY #14 tablet.er Referrals: JORGE MAYES DPM [ACTIVE STAFF] - 11/01/19
--- NOTE | 2019-10-30 02:10 | RADIOLOGY REPORT (SQ) ---
AP Portable chest: 10/30/2019 1:08 AM CDT History: 84-year old patient with dyspnea. Comparison: Chest radiograph performed 06/28/2018. Findings: The cardiomediastinal silhouette is enlarged. No pneumothorax is seen. No acute airspace opacities are seen. No discrete pleural effusion is apparent. A left shoulder hemiarthroplasty is seen. Impression: No acute airspace opacities are seen.
[2019-10-30 02:23] LABS: ABSOLUTE EOSINOPHILS # (AUTO) 0.2 10^3/uL (0.0-0.6); ABSOLUTE LYMPHOCYTES (AUTO) 1.5 10^3/uL (0.5-4.7); ABSOLUTE MONOCYTES (AUTO) 0.5 10^3/uL (0.1-1.4); ABSOLUTE NEUT (AUTO) 3.1 10^3/uL (1.7-8.2); HEMOGLOBIN 13.2 g/dL (12.0-15.5); MEAN CORPUSCULAR VOLUME 86 fl (80-97); RED CELL DISTRIBUTION WIDTH 13.7 % (11.5-14.0); TOTAL CELLS COUNTED % (AUTO) 100 %; WHITE BLOOD COUNT 5.4 10^3/uL (4.0-10.5)
[2019-10-30 02:35] LABS: ALBUMIN 4.6 g/dL (3.5-5.0); ALKALINE PHOSPHATASE 67 U/L (38-126); ANION GAP 8 (5-19); ASPARTATE AMINO TRANSFERASE 31 U/L (14-36); BILIRUBIN,TOTAL 0.5 mg/dL (0.2-1.3); BLOOD UREA NITROGEN 18 mg/dL (7-20); CALCIUM 9.7 mg/dL (8.4-10.2); CARBON DIOXIDE 27 mmol/L (22-30); CHLORIDE 103 mmol/L (98-107); GLUCOSE 94 mg/dL (75-110); POTASSIUM 4.1 mmol/L (3.6-5.0); TOTAL PROTEIN 7.2 g/dL (6.3-8.2)
[2019-10-30 02:46] LABS: HEMATOCRIT 38.4 % (36.0-47.0); NT PRO BNP 289 pg/mL (<450); RED BLOOD COUNT 4.45 10^6/uL (3.72-5.28)
[2019-10-30 02:47] LABS: ABSOLUTE BASOPHILS # (AUTO) 0.1 10^3/uL (0.0-0.2); EOSINOPHILS % (AUTO) 4.2 % (0-6); LYMPHOCYTES % (AUTO) 28.5 % (13-45); MEAN CORPUSCULAR HEMOGLOBIN 29.7 pg (27.0-33.4); MEAN CORPUSCULAR HGB CONC 34.4 g/dL (32.0-36.0); MONOCYTES % (AUTO) 8.5 % (3-13); PLATELET COUNT 202 10^3/uL (150-450); SEGMENTED NEUTROPHILS % (AUTO) 57.8 % (42-78)
[2019-10-30 02:56] LABS: TROPONIN I < 0.012 ng/mL
[2019-10-30] MEDS ORDERED: ONDANSETRON HCL INJ/PF 4 MG/2 ML SDV IV ONE (03:12)
[2019-10-30] MEDS ORDERED: POTASSIUM CHLORIDE 10 MEQ TABLET.ER PO ONE (03:12)
[2019-10-30] MEDS ORDERED: FUROSEMIDE 40 MG TABLET PO ONE (03:12)
[2019-10-30] MEDS ORDERED: ACETAMINOPHEN 325 MG TABLET PO ONE (03:12)
--- NOTE | 2019-10-30 08:48 | EKG REPORT ---
SEVERITY:- ABNORMAL ECG - SINUS RHYTHM SUPRAVENTRICULAR BIGEMINY CONSIDER ANTEROSEPTAL INFARCT BORDERLINE T ABNORMALITIES, ANTERIOR LEADS : Confirmed by: Rod Lennon MD 30-Oct-2019 08:46:41
[2019-10-30 10:21] VITALS: BP 122/61
== END 2019-10-30 10:58 | disposition home or self-care (01) ==
LOC: ER 00:47
DX: I10 Essential (primary) hypertension (principal); R60.0 Localized edema; R51 Headache; F41.9 Anxiety disorder, unspecified; R09.89 Other specified symptoms and signs involving the circulatory and respiratory systems; I49.49 Other premature depolarization; I25.2 Old myocardial infarction; Z79.899 Other long term (current) drug therapy; Z79.02 Long term (current) use of antithrombotics/antiplatelets; Z86.73 Personal history of transient ischemic attack (TIA), and cerebral infarction without residual deficits; Z88.0 Allergy status to penicillin; Z88.2 Allergy status to sulfonamides
CPT/HCPCS: 93005; 99284; 36415; 85025; 80053; 84484; 83880; 71045; 93010; A9270 ×3